=== PATIENT | female | born 1955 | race Caucasian/White ===

== ENCOUNTER 2024-01-05 16:42 | Emergency (ER) | payer MEDICARE, OTHER ==
[2024-01-05] MEDS ORDERED: Augmentin 875-125 Tablet ONE (17:01)
[2024-01-05] MEDS: Augmentin 875-125 Tablet PO ONE (17:02)
[2024-01-05 17:05] VITALS: TEMP 97
--- NOTE | 2024-01-05 17:07 | ERPHSYRPT ---
- History of Present Illness Time Seen by Provider: 01/05/24 17:01 Source: patient Exam Limitations: no limitations Physician History: Patient is a 68-year-old female presents to our emergency department for evaluation of a laceration to her left fifth digit. Patient states her 7-month-old puppy was playing with her when he accidentally lacerated her finger with his immature sharp teeth. Patient reports her puppy is fully vaccinated. She reports a dog was playing with her. Pet was not aggressive. Injury occurred yesterday approximately 24 hours ago. No active bleeding. Laceration measures 1 cm. No other injuries reported. No active pain. Patient otherwise feels well. She voices no other complaints or concerns at this time. Tetanus is not up-to-date Portions of this note were created with voice recognition technology. There may be grammatical, spelling, punctuation or sound alike errors Timing/Duration: yesterday Severity: mild Modifying Factors: Improves With: nothing Associated Symptoms: denies symptoms Allergies/Adverse Reactions: Sulfa (Sulfonamide Antibiotics) Allergy (Intermediate, Verified 07/26/12 20:19) Hives Home Medications: Levothyroxine Sodium [Synthroid] 25 mcg PO AC 07/26/12 [History] Meloxicam 7.5 mg [Mobic 7.5 MG] 7.5 mg PO DAILY 07/26/12 [History] Paroxetine HCl 20 mg [Paxil 20 MG] 40 mg PO DAILY 07/26/12 [History] hydroCHLOROthiazide [Hydrochlorothiazide] 12.5 mg PO DAILY 07/26/12 [History] Calcium Carbonate/Vitamin D3 [Calcium 500-Vit D3 400 Tablet] 1 each PO DAILY 07/27/12 [History] Cholecalciferol (Vitamin D3) [Vitamin D] 400 unit PO DAILY 07/27/12 [History] Cranberry Conc/Ascorbic Acid [Cranberry + Vit C Softgel] 2 - 4 each PO DAILY 07/27/12 [History] Cyanocobalamin/Folic Acid [Vitamin B72-Mqmam Acid Tablet] 1 each PO DAILY 07/27/12 [History] Ferrous Sulfate [Iron] 325 mg PO DAILY 07/27/12 [History] Lactobacillus Acidophilus [Acidophilus] 1 each PO DAILY 07/27/12 [History] [place]-3 Fatty Acids/Fish Oil [Fish Oil 1,000 mg Capsule] 1,000 mg PO DAILY 07/27/12 [History] Trandolapril [Mavik] 4 mg PO DAILY 07/27/12 [History] Hx Tetanus, Diphtheria Vaccination/Date Given: No Hx Influenza Vaccination/Date Given: Yes (2011) Hx Pneumococcal Vaccination/Date Given: Yes (2007) - Review of Systems Constitutional: No Symptoms, No Fever, No Chills Eyes: No Symptoms Ears, Nose, & Throat: No Symptoms Respiratory: No Symptoms, No Cough, No Dyspnea Cardiac: No Symptoms, No Chest Pain, No Edema, No Syncope Abdominal/Gastrointestinal: No Symptoms, No Abdominal Pain, No Nausea, No Vomiting, No Diarrhea Genitourinary Symptoms: No Symptoms, No Dysuria Musculoskeletal: No Symptoms, No Back Pain, No Neck Pain Skin: No Symptoms, No Rash Neurological: No Symptoms, No Dizziness, No Focal Weakness, No Sensory Changes Psychological: No Symptoms Endocrine: No Symptoms Hematologic/Lymphatic: No Symptoms Immunological/Allergic: No Symptoms All Other Systems: Reviewed and Negative - Past Medical History Pertinent Past Medical History: Yes Neurological History: No Pertinent History ENT History: No Pertinent History Cardiac History: Hypertension Respiratory History: COPD, Other Endocrine Medical History: Hypothyroidism Musculoskeletal History: Osteoarthritis GI Medical History: Diverticulosis History: No Pertinent History Psycho-Social History: Anxiety Female Reproductive Disorders: No Pertinent History Other Medical History: NOTED ABOVE COVID IN JANUARY. FX RIGHT FEMUR WITH CHRISTINE PLACEMENT 2014. HX FX RIGHT TIBIAL PLATEAU WITH TKR 2015. OTHER PMHX: ANXIETY, DEPRESSION, VITAMIN D DEFICIENCY, RLS - Past Surgical History Past Surgical History: Yes Neuro Surgical History: No Pertinent History Cardiac: No Pertinent History Respiratory: No Pertinent History Gastrointestinal: No Pertinent History Genitourinary: No Pertinent History Musculoskeletal: Other Female Surgical History: No Pertinent History Other Surgical History: lumpectomy left breast in 1980. in 1984. cervical disk infusion in 2004 - Social History Smoking Status: Never smoker Exposure to second hand smoke: Yes (father smoked) Drug Use: none Patient Lives Alone: No - Nursing Vital Signs Nursing Vital Signs: Initial Vital Signs Temperature 97 F 01/05/24 16:51 Pulse Rate 51 L 01/05/24 16:51 Respiratory Rate 18 01/05/24 16:51 Blood Pressure 150/99 01/05/24 16:51 O2 Sat by Pulse Oximetry 96 01/05/24 16:51 Pain Scale Pain Intensity 4 - Physical Exam General Appearance: no apparent distress, alert Eye Exam: PERRL/EOMI, eyes nml inspection Ears, Nose, Throat Exam: normal ENT inspection, moist mucous membranes Neck Exam: normal inspection, full range of motion Respiratory Exam: normal breath sounds, airway intact, No respiratory distress Cardiovascular Exam: regular rate/rhythm, normal peripheral pulses Gastrointestinal/Abdomen Exam: No tenderness, No mass Back Exam: No CVA tenderness, No vertebral tenderness Extremity Exam: normal inspection, normal range of motion, pelvis stable, other (1 cm superficial laceration left fifth digit. The involved digit neurovascular tact distally compartments are soft cap refill less than 2 seconds. No active bleeding. Radial pulse palpable) Neurologic Exam: alert, oriented x 3, cooperative, normal mood/affect, sensation nml, No motor deficits Skin Exam: normal color, warm, dry, No rash Lymphatic Exam: No adenopathy SpO2 Interpretation: normal SpO2: 96 O2 Delivery: Room Air - Course Nursing assessment & vital signs reviewed: Yes Ordered Tests: Active Orders 24 hr Category Date Time Status Wound Care STAT Care 01/05/24 17:10 Active Medication Summary Generic Name Dose Route Start Last Admin Trade Name Freq PRN Reason Stop Dose Admin Diphtheria/Tetanus/Acell Pertussis 0.5 ml 01/05/24 17:10 Tdap --Diph,Pertuss(Acell),Tet Vac/Pf 0.5 Ml Vial IM 01/05/24 17:11 .ONCE ONE Discontinued Medications Generic Name Dose Route Start Last Admin Trade Name Freq PRN Reason Stop Dose Admin Amoxicillin/Clavulanate Potassium 875 mg 01/05/24 16:57 01/05/24 17:02 Amox Tr/Potassium Clavulanate 875 Mg Tablet PO 01/05/24 16:58 875 mg STAT ONE Administration Amoxicillin/Clavulanate Potassium Confirm 01/05/24 17:01 Amox Tr/Potassium Clavulanate 875 Mg Tablet Administered 01/05/24 17:02 Dose 875 mg .ROUTE .STK-MED ONE - Progress Progress: improved Progress Note: 68-year-old female presents with a laceration to her left fifth digit sustained while playing with her 7-month-old puppy. The injury was accidental. The dog is not aggressive. Patient reports her puppy is up-to-date with vaccinations. However patient is not. Tetanus updated in our ED. The laceration is 24 hours old. It will be repaired using Steri-Strips and Dermabond. Sterile dressing applied. Patient neurovascular tact distally post dressing application. No indication for further workup will discharge home. Patient agrees to follow-up with her primary care doctor within 48 hours for reevaluation. Patient received an oral dose of Augmentin in our ED. A prescription for the same forwarded to patient's pharmacy. Portions of this note were created with voice recognition technology. There may be grammatical, spelling, punctuation or sound alike errors Complexity problem addressed is moderate acute complicated no critical care time. Complex of data reviewed analyzes none no specialized testing ordered. Diagnosis made based on history and physical exam. Risk of complication and or risk of morbidity/mortality patient management is moderate. A prescription for Augmentin forwarded to patient's pharmacy. Vital stable. Time spent to discharge patient approximately 10 minutes. Plan of care established for shared decision making. No social determinants of health present to impede follow-up. Portions of this note were created with voice recognition technology. There may be grammatical, spelling, punctuation or sound alike errors 01/05/24 17:20 Counseled pt/family regarding: diagnosis, need for follow-up - Departure Departure Disposition: Home Clinical Impression: Finger laceration Condition: Stable Critical Care Time: No Referrals: ROBERT BELLE DO [Primary Care Provider] - Follow up/PCP as directed Additional Instructions: Discharge/Care Plan MARIE WALLACE was seen on 01/05/24 in the Emergency Room. The patient was counseled regarding Diagnosis,Lab results, Imaging studies, need for follow up and when to return to the Emergency Room. Prescriptions given: Discharge Note I have spoken with the patient and/or caregivers. I have explained the patient's condition, diagnosis and treatment plan based on the information available to me at this time. I have answered the patient's and/or caregiver's questions and addressed any concerns. The patient and/or caregivers have as good understanding of the patient's diagnosis, condition and treatment plan as can be expected at this point. The vital signs have been stable. The patient's condition is stable and appropriate for discharge from the emergency department. The patient will pursue further outpatient evaluation with the primary care physician or other designated or consulting physician as outlined in the discharge instructions. The patient and/or caregivers are agreeable to this plan of care and follow-up instructions have been explained in detail. The patient and/or caregivers have received these instruction. The patient/and or caregivers are aware that any significant change in condition or worsening of symptoms should prompt an immediate return to this or the closest emergency department or call 911. Prescriptions: Amox Tr/Potass Clav. 875 mg [Augmentin 875-125 Tablet] 875 mg PO BID 7 Days #14 tablet
[2024-01-05] MEDS ORDERED: Adacel Vial IM ONE (17:11)
[2024-01-05] MEDS: Adacel Vial IM ONE (17:12)
[2024-01-05 17:48] VITALS: BP 145/78; PULSE 68; RESP 16; O2SAT 95
== END 2024-01-05 17:45 | disposition home or self-care (01) ==
LOC: ED 16:42
DX: S61.217A Laceration without foreign body of left little finger without damage to nail, initial encounter (principal); W54.0XXA Bitten by dog, initial encounter; I10 Essential (primary) hypertension; Z79.899 Other long term (current) drug therapy; Z23 Encounter for immunization
CPT/HCPCS: 90471; 90715; 99283; A9270-GY

== ENCOUNTER 2024-09-08 16:54 | Inpatient (IN) | payer MEDICARE, OTHER ==
--- NOTE | 2024-09-08 17:26 | ERPHSYRPT ---
- History of Present Illness Source: patient Exam Limitations: no limitations Patient Subjective Stated Complaint: patient sent from dr office for dehydration and inability to urinate. she states she has loose stool since last thursday and burning with urination Triage Nursing Assessment: patient walks to er bed and uses the restroom independantly. Her breathing is nonlabored. Skin warm, pink and dry. She states she has had loose stool since last thursday, up to 8 per day. She also has burning with urination. She endorses decreased intake and weakness. Abdomen is nontender. Physician History: Patient's had frequent diarrhea. Is been going on for about a week. She says she feels rundown and energy. She has had some nausea but no vomiting. She is not on antibiotics. She has had no changes in her medicines. There is been no out of country travel or drinking of possibly contaminated water. 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 Allergies/Adverse Reactions: Sulfa (Sulfonamide Antibiotics) Allergy (Intermediate, Verified 01/05/24 17:16) [facility] Home Medications: Levothyroxine Sodium [Synthroid] 25 mcg PO AC 07/26/12 [History] hydroCHLOROthiazide [Hydrochlorothiazide] 12.5 mg PO DAILY 07/26/12 [History] Calcium Carbonate/Vitamin D3 [Calcium 500-Vit D3 400 Tablet] 1 each PO DAILY 07/27/12 [History] Cholecalciferol (Vitamin D3) [Vitamin D] 400 unit PO DAILY 07/27/12 [History] Cranberry Conc/Ascorbic Acid [Cranberry + Vit C Softgel] 2 - 4 each PO DAILY 07/27/12 [History] Trandolapril [Mavik] 4 mg PO DAILY 07/27/12 [History] ARIPiprazole [Aripiprazole] 5 mg PO DAILY 09/08/24 [History] Amlodipine Besylate 5 mg PO DAILY 09/08/24 [History] Timolol Maleate/Pf [Timolol Maleate 0.5% Eye Drop] 1 drop DROPS DAILY 09/08/24 [History] Venlafaxine HCl [Venlafaxine HCl ER] 75 mg PO DAILY 09/08/24 [History] Venlafaxine HCl [Venlafaxine HCl ER] 150 mg PO DAILY 09/08/24 [History] clonazePAM [Clonazepam] 0.5 mg PO DAILY 09/08/24 [History] Hx Tetanus, Diphtheria Vaccination/Date Given: No Hx Influenza Vaccination/Date Given: Yes (2011) Hx Pneumococcal Vaccination/Date Given: Yes (2007) Travel Risk - International Travel Have you traveled outside of the country in past 3 weeks: No - Emerging Infectious Disease Are you exhibiting symptoms associated with any current EIDs: Yes Symptoms: Diarrhea - Review of Systems Constitutional: Fatigue, Lethargy, Malaise Eyes: No Symptoms Respiratory: No Symptoms Cardiac: No Symptoms Abdominal/Gastrointestinal: Diarrhea Genitourinary Symptoms: No Symptoms Musculoskeletal: No Symptoms Skin: Skin Lesions Neurological: No Symptoms All Other Systems: Reviewed and Negative - Past Medical History Pertinent Past Medical History: Yes Neurological History: No Pertinent History ENT History: No Pertinent History Cardiac History: Hypertension Respiratory History: COPD, Other Endocrine Medical History: Hypothyroidism Musculoskeletal History: Osteoarthritis GI Medical History: Diverticulosis History: No Pertinent History Psycho-Social History: Anxiety Female Reproductive Disorders: No Pertinent History Other Medical History: NOTED ABOVE COVID IN JANUARY. FX RIGHT FEMUR WITH CHRISTINE PLACEMENT 2014. HX FX RIGHT TIBIAL PLATEAU WITH TKR 2015. OTHER PMHX: ANXIETY, DEPRESSION, VITAMIN D DEFICIENCY, RLS - Past Surgical History Past Surgical History: Yes Neuro Surgical History: No Pertinent History Cardiac: No Pertinent History Respiratory: No Pertinent History Gastrointestinal: No Pertinent History Genitourinary: No Pertinent History Musculoskeletal: Other Female Surgical History: No Pertinent History Other Surgical History: lumpectomy left breast in 1980. in 1984. cervical disk infusion in 2004 - Social History Smoking Status: Never smoker Exposure to second hand smoke: Yes (father smoked) Drug Use: none - Social Determinants of Health Will the patient participate in the screening: Yes Do you worry about a steady place to live?: No Do you have any problems with any of the following?: No known problems In the past 12 months,have you had to go without utilities?: No Transportation Issues: No Has anyone in your support network made you feel unsafe?: No Have you or anyone in your house had to go w/o enough food: No - Nursing Vital Signs Nursing Vital Signs: Initial Vital Signs Pulse Rate 67 09/08/24 17:10 Respiratory Rate 23 09/08/24 17:10 Pain Scale Pain Intensity 0 - Physical Exam General Appearance: no apparent distress Eye Exam: PERRL/EOMI Ears, Nose, Throat Exam: normal ENT inspection Neck Exam: normal inspection Respiratory Exam: normal breath sounds, lungs clear, No chest tenderness Cardiovascular Exam: regular rate/rhythm, normal heart sounds Gastrointestinal/Abdomen Exam: soft, normal bowel sounds, No tenderness, No distention Pelvic Exam: not done Back Exam: normal inspection Neurologic Exam: alert, oriented x 3, cooperative Skin Exam: normal color, warm - Course EKG Interpreted by Me: RATE, NORMAL AXIS, NORMAL INTERVALS, NORMAL QRS, NORMAL ST-T Ordered Tests: Active Orders 24 hr Category Date Time Status Bedrest with BRP/BSC TOLERATED Activity 09/08/24 20:24 Active Code Status Order ROUTINE Care 09/08/24 20:24 Active EKG-ER Only STAT Care 09/08/24 18:14 Active Intake and Output q4h Care 09/08/24 20:[address] in Observation ROUTINE Care 09/08/24 20:23 Active Telemetry PROTOCOL Care 09/08/24 20:24 Active Telemetry q4h Care 09/08/24 19:54 Active Telemetry q6h Care 09/08/24 20:24 Active CBC W DIFF Stat Lab 09/08/24 17:25 Completed CMP Stat Lab 09/08/24 17:25 Completed CULTURE,URINE Stat Lab 09/08/24 18:58 Received MAGNESIUM Stat Lab 09/08/24 17:25 Completed UA W/RFX UR CULTURE Stat Lab 09/08/24 18:58 Completed EKG PRN RT 09/08/24 20:23 Active Medication Summary Generic Name Dose Route Start Last Admin Trade Name Freq PRN Reason Stop Dose Admin Potassium Chloride 20 meq in 100 mls @ 50 mls/hr 09/08/24 19:54 09/08/24 20:00 Potassium Chloride 20 Meq In Water 100ml IV 09/08/24 21:53 50 mls/hr STAT ONE Administration Sodium Chloride 1,000 mls @ 250 mls/hr 09/08/24 19:55 09/08/24 19:59 Sodium Chloride 0.9% 1000 Ml IV 09/08/24 23:54 250 mls/hr .Q4H STA Administration Discontinued Medications Generic Name Dose Route Start Last Admin Trade Name Freq PRN Reason Stop Dose Admin Sodium Chloride 1,000 mls @ 999 mls/hr 09/08/24 17:15 09/08/24 18:37 Sodium Chloride 0.9% 1000 Ml IV 09/08/24 18:15 Infused .Q1H1M STA Infusion Sodium Chloride Confirm 09/08/24 17:25 Sodium Chloride 0.9% 1000 Ml Administered 09/08/24 17:26 Dose 1,000 mls @ ud .ROUTE .STK-MED ONE Potassium Chloride Confirm 09/08/24 19:56 Potassium Chloride 20 Meq In Water 100ml Administered 09/08/24 19:57 Dose 100 mls @ ud IV .STK-MED ONE Sodium Chloride Confirm 09/08/24 19:59 Sodium Chloride 0.9% 1000 Ml Administered 09/08/24 20:00 Dose 1,000 mls @ ud .ROUTE .STK-MED ONE Potassium Chloride 40 meq 09/08/24 18:14 09/08/24 18:17 Potassium Chloride Tab 10 Meq Tab PO 09/08/24 18:15 40 meq STAT ONE Administration Potassium Chloride Confirm 09/08/24 18:16 Potassium Chloride Tab 10 Meq Tab Administered 09/08/24 18:17 Dose 40 meq .ROUTE .STK-MED ONE Lab/Rad Data: Laboratory Result Diagrams 09/08/24 17:25 09/08/24 17:25 Laboratory Results 09/08/24 09/08/24 09/08/24 Range/Units 18:58 17:25 17:25 WBC 8.3 (3.98-10.04) x10^3/uL RBC 4.56 (3.93-5.22) x10^6/uL Hgb 12.6 (11.2-15.7) g/dL Hct 39.0 (34.1-44.9) % MCV 85.5 (79.4-94.8) fL MCH 27.6 (25.6-32.2) pg MCHC 32.3 (32.2-35.5) g/dL RDW 13.3 (11.7-14.4) % Plt Count 322 (182-369) x10^3/uL MPV 9.0 L (9.4-12.3) fL Gran % 66.7 (34.0-71.1) % Immature Gran % (Auto) 0.5 H (0.001-0.429) % Nucleat RBC Rel Count 0.0 (0.00-0.2) % Eos # (Auto) 0.11 (0.04-0.36) x10^3/uL Immature Gran # (Auto) 0.04 H (0.001-0.031) x10^3u/L Absolute Lymphs (auto) 1.53 (1.18-3.74) x10^3/uL Absolute Monos (auto) 1.04 H (0.24-0.86) x10^3/uL Absolute Nucleated RBC 0.00 (0.00-0.012) x10^3u/L Lymphocytes % 18.5 L (19.3-51.7) % Monocytes % 12.6 H (4.7-12.5) % Eosinophils % 1.3 (0.7-5.8) % Basophils % 0.4 (0.1-1.2) % Absolute Granulocytes 5.53 (1.56-6.13) x10^3/uL Basophils # 0.03 (0.01-0.08) x10^3/uL Sodium 130 L (135-145) mmol/L Potassium 2.5 L* (3.5-5.1) mmol/L Chloride 92 L (98-107) mmol/L Carbon Dioxide 24 (22-30) mmol/L Anion Gap 16.7 H (5-15) MEQ/L BUN 33 H (7-17) mg/dL Creatinine 4.13 H (0.52-1.04) mg/dL Estimated GFR 11.2 ML/MIN Glucose 108 H (74-106) mg/dL Calcium 8.8 (8.4-10.2) mg/dL Magnesium 2.1 (1.6-2.3) mg/dL Total Bilirubin 0.70 (0.2-1.3) mg/dL AST 36 (14-36) U/L ALT 27 (0-35) U/L Alkaline Phosphatase 125 (38-126) U/L Serum Total Protein 8.6 H (6.3-8.2) g/dL Albumin 4.3 (3.5-5.0) g/dL Urine Color Dark Yellow A (Yellow) Urine Appearance Turbid A (Clear) Urine pH 5.5 (4.6-8.0) Ur Specific Todd 1.010 (1.005-1.030) Urine Protein 100 A (Negative) Urine Glucose (UA) Negative (Negative) mg/dL Urine Ketones Negative (Negative) Urine Blood Large A (Negative) Urine Nitrite Negative (Negative) Urine Bilirubin Large A (Negative) Urine Urobilinogen 1.0 A (0.2) mg/dL Ur Leukocyte Esterase Large A (Negative) U Hyaline Cast (Auto) >50 A (0-2) /LPF Urine Microscopic RBC >100 A (0-5) /HPF Urine Microscopic WBC >100 A (0-5) /HPF Ur Epithelial Cells Few (None Seen) /HPF Urine Bacteria Many A (None Seen) /HPF Urine Culture Reflexed YES (NO) - Progress Progress: improved Progress Note: Patient got a liter of fluids and was feeling better. Her labs started coming back. She had had a potassium of 2.5 and her BUN was 33 and her creatinine was 4.3. She had labs done 10 days ago in the creatinine was only 1.03. I think that this is all prerenal kidney injury.I gave her some oral potassium and hung up potassium rider on her. I went ahead and contacted the hospitalist. She agreed to accept the patient and hydrate her and monitor her electrolytes. 09/08/24 20:21 - Departure Departure Disposition: Observation Clinical Impression: Dehydration, Acute kidney injury, Hypokalemia Condition: Stable Critical Care Time: No Referrals: ROBERT BELLE DO [Primary Care Provider, [facility]] - Follow up/PCP as directed
[2024-09-08 17:37] LABS: BASOPHIL % 0.4 % (0.1-1.2); Basophil (Absolute #) 0.03 x10^3/uL (0.01-0.08); Eosinophil (Absolute #) 0.11 x10^3/uL (0.04-0.36); Hematocrit 39.0 % (34.1-44.9); Hemoglobin 12.6 g/dL (11.2-15.7); IMMATURE GRAN # 0.04 x10^3u/L (0.001-0.031); IMMATURE GRAN % 0.5 % (0.001-0.429); Lymphocyte (Absolute #) 1.53 x10^3/uL (1.18-3.74); Mean Corpuscular Hemoglobin 27.6 pg (25.6-32.2); Mean Corpuscular Hgb Concent. 32.3 g/dL (32.2-35.5); Monocyte (Absolute #) 1.04 x10^3/uL (0.24-0.86); NUCLEATED RBC # 0.00 x10^3u/L (0.00-0.012); NUCLEATED RBC % 0.0 % (0.00-0.2); Platelet Count 322 x10^3/uL (182-369); Red Blood Count 4.56 x10^6/uL (3.93-5.22); White Blood Count 8.3 x10^3/uL (3.98-10.04)
[2024-09-08 17:55] LABS: Calcium 8.8 mg/dL (8.4-10.2); Carbon Dioxide 24.0 mmol/L (22-30); Creatinine 1 4.13 mg/dL (0.52-1.04); EST GLOMERULAR FILTRATION RATE 11.2 ML/MIN; Glucose 108.0 mg/dL (74-106); SGOT/AST 36.0 U/L (14-36); SGPT/ALT 27.0 U/L (0-35); Total Protein 8.6 g/dL (6.3-8.2)
[2024-09-08 18:11] LABS: Potassium 2.5 mmol/L (3.5-5.1)
[2024-09-08] MEDS ORDERED: Klor Con ONE (18:16)
[2024-09-08] MEDS: Klor Con PO ONE (18:17)
[2024-09-08 19:32] LABS: Glucose, Urine Negative (Negative); Protein,Urine Dip 100 (Negative); RBC >100 /HPF (0-5); WBC >100 /HPF (0-5)
[2024-09-08] MEDS ORDERED: POTASSIUM CHLORIDE 20 mEq IN WATER 100ML 100 ML IV ONE (19:56)
[2024-09-08] MEDS: POTASSIUM CHLORIDE 20 mEq IN WATER 100ML 20 MEQ/100 ML BAG IV ONE (20:00)
--- NOTE | 2024-09-08 20:49 | PCM.HP ---
History of Present Illness - Chief Complaint Chief Complaint: Hypokalemia, acute kidney injury, dehydration Date: 09/08/24 History of Present Illness: is a 69 year old female with PMh significant for HTN, Hypothyroidism, Anxiety who came upon her PCP request for ANGELIKA/ diarrhea evaluation, pt told me for one week she is suffering from loose stools mostly diarrhea with on/ of fever, no blood stools, she did have Sx of UTI as well, not being started on AB, today she went to see her PCP who advised her to come to ER for further evaluation.In ER Bp was running towards softer side, blood w/u was remarkable high Cr 4.2, K 2.9, urine +ve for LE,2wbc 100 and blood +ve, started o nAB and admitted for further care - Review of Systems All Other Systems: Reviewed and Negative (14 systems reviewed and marked -ve except mentioned in [facility] [facility]) Medications & Allergies Home Medications: Home Medication List hydroCHLOROthiazide [Hydrochlorothiazide] 12.5 mg PO DAILY 07/26/12 [History C onfirmed 09/08/24] Calcium Carbonate/Vitamin D3 [Calcium 500-Vit D3 400 Tablet] 1 each PO DAILY 07/27/12 [History Confirmed 09/08/24] Cholecalciferol (Vitamin D3) [Vitamin D] 400 unit PO DAILY 07/27/12 [History Confirmed 09/08/24] Cranberry Conc/Ascorbic Acid [Cranberry + Vit C Softgel] 2 - 4 each PO DAILY 07/27/12 [History Confirmed 09/08/24] Trandolapril [Mavik] 4 mg PO DAILY 07/27/12 [History Confirmed 09/08/24] ARIPiprazole [Aripiprazole] 5 mg PO DAILY 09/08/24 [History Confirmed 09/08/24] Amlodipine Besylate 5 mg PO DAILY 09/08/24 [History Confirmed 09/08/24] Cyclobenzaprine HCl 5 mg PO QHS 09/08/24 [History Confirmed 09/08/24] Gabapentin 600 mg PO QHS 09/08/24 [History Confirmed 09/08/24] Levothyroxine Sodium 50 Mcg [Synthroid 50 Mcg] 50 mcg PO QAM 09/08/24 [History Confirmed 09/08/24] Rosuvastatin Calcium [Crestor] 5 mg PO DAILY 09/08/24 [History Confirmed 09/08/24] Timolol Maleate/Pf [Timolol Maleate 0.5% Eye Drop] 1 drop DROPS DAILY 09/08/24 [History Confirmed 09/08/24] Trazodone HCl 150 mg PO QHS 09/08/24 [History Confirmed 09/08/24] Venlafaxine HCl [Venlafaxine HCl ER] 150 mg PO DAILY 09/08/24 [History Confirmed 09/08/24] clonazePAM [Clonazepam] 0.5 mg PO DAILY 09/08/24 [History Confirmed 09/08/24] hydrOXYzine HCL [Hydroxyzine HCl] 10 mg PO QHS 09/08/24 [History Confirmed 09/08/24] Allergies/Adverse Reactions: Allergies Allergy/AdvReac Type Severity Reaction Status Date / Time Sulfa (Sulfonamide Allergy Intermediate Hives Verified 09/08/24 20:47 Antibiotics) - Past Medical History Past Medical History: Yes Neurological History: No Pertinent History ENT History: No Pertinent History Cardiac History: Hypertension Respiratory History: COPD, Other Endocrine Medical History: Hypothyroidism Musculoskelatal History: Osteoarthritis GI Medical History: Diverticulosis History: No Pertinent History Pyscho-Social History: Anxiety Reproductive Disorders: No Pertinent History Comment: NOTED ABOVE COVID IN JANUARY. FX RIGHT FEMUR WITH CHRISTINE PLACEMENT 2014. HX FX RIGHT TIBIAL PLATEAU WITH TKR 2015. OTHER PMHX: ANXIETY, DEPRESSION, VITAMIN D DEFICIENCY, RLS - Past Surgical History Past Surgical History: Yes Neuro Surgical History: No Pertinent History Cardiac History: No Pertinent History Respiratory Surgery: No Pertinent History GI Surgical History: No Pertinent History Genitourinary Surgical Hx: No Pertinent History Musculskeletal Surgical Hx: Other Female Surgical History: No Pertinent History Other Surgical History: lumpectomy left breast in 1980. in 1984. cervical disk infusion in 2004 Significant Family History: no pertinent family hx (no family history petrtaining to this admission reported) - Social History Smoking Status: Never smoker Exposure to second hand smoke: Yes (father smoked) Alcohol: None Drug Use: none - Social Determinants of Health Will the patient participate in the screening: Yes Do you worry about a steady place to live?: No Do you have any problems with any of the following?: No known problems In the past 12 months,have you had to go without utilities?: No Have you or anyone in your house had to go without enough: No Transportation Issues: No Has anyone in your support network made you feel unsafe?: No - Physical Exam Vital Signs: Vital Signs - 24 hr Temp Pulse Resp BP BP Pulse Ox 09/08/24 19:59 70 19 99/71 98 09/08/24 19:09 60 19 107/66 99 09/08/24 19:08 63 20 78 L 09/08/24 19:07 98 09/08/24 18:30 136/74 09/08/24 18:01 57 L 20 125/54 97 09/08/24 17:30 59 L 20 113/66 98 09/08/24 17:20 97.1 F 57 L 16 110/63 99 09/08/24 17:11 60 24 110/63 97 09/08/24 17:10 67 23 Additional Findings: 09/08/24 20:48 HEENT Middle aged, average built in no distress NECK Supple,no thyromegaly, CVS S1+S2 + 0, no murmers RESP Bilateral equal air entry without Crepts/Wheezes heard GIT Soft non tender,non distended Skin, No rah, no Bruises LEGS No Edema PSYCH Normal,mood, judgement and insight NEURO AOX3, no focal deficit Results - Labs Lab/Micro Results: Lab Results-Last 24 Hours 09/08/24 09/08/24 09/08/24 Range/Units 17:25 17:25 18:58 WBC 8.3 (3.98-10.04) x10^3/uL RBC 4.56 (3.93-5.22) x10^6/uL Hgb 12.6 (11.2-15.7) g/dL Hct 39.0 (34.1-44.9) % MCV 85.5 (79.4-94.8) fL MCH 27.6 (25.6-32.2) pg MCHC 32.3 (32.2-35.5) g/dL RDW 13.3 (11.7-14.4) % Plt Count 322 (182-369) x10^3/uL MPV 9.0 L (9.4-12.3) fL Gran % 66.7 (34.0-71.1) % Immature Gran % (Auto) 0.5 H (0.001-0.429) % Nucleat RBC Rel Count 0.0 (0.00-0.2) % Eos # (Auto) 0.11 (0.04-0.36) x10^3/uL Immature Gran # (Auto) 0.04 H (0.001-0.031) x10^3u/L Absolute Lymphs (auto) 1.53 (1.18-3.74) x10^3/uL Absolute Monos (auto) 1.04 H (0.24-0.86) x10^3/uL Absolute Nucleated RBC 0.00 (0.00-0.012) x10^3u/L Lymphocytes % 18.5 L (19.3-51.7) % Monocytes % 12.6 H (4.7-12.5) % Eosinophils % 1.3 (0.7-5.8) % Basophils % 0.4 (0.1-1.2) % Absolute Granulocytes 5.53 (1.56-6.13) x10^3/uL Basophils # 0.03 (0.01-0.08) x10^3/uL Sodium 130 L (135-145) mmol/L Potassium 2.5 L* (3.5-5.1) mmol/L Chloride 92 L (98-107) mmol/L Carbon Dioxide 24 (22-30) mmol/L Anion Gap 16.7 H (5-15) MEQ/L BUN 33 H (7-17) mg/dL Creatinine 4.13 H (0.52-1.04) mg/dL Estimated GFR 11.2 ML/MIN Glucose 108 H (74-106) mg/dL Calcium 8.8 (8.4-10.2) mg/dL Magnesium 2.1 (1.6-2.3) mg/dL Total Bilirubin 0.70 (0.2-1.3) mg/dL AST 36 (14-36) U/L ALT 27 (0-35) U/L Alkaline Phosphatase 125 (38-126) U/L Serum Total Protein 8.6 H (6.3-8.2) g/dL Albumin 4.3 (3.5-5.0) g/dL Urine Color Dark Yellow A (Yellow) Urine Appearance Turbid A (Clear) Urine pH 5.5 (4.6-8.0) Ur Specific [place] 1.010 (1.005-1.030) Urine Protein 100 A (Negative) Urine Glucose (UA) Negative (Negative) mg/dL Urine Ketones Negative (Negative) Urine Blood Large A (Negative) Urine Nitrite Negative (Negative) Urine Bilirubin Large A (Negative) Urine Urobilinogen 1.0 A (0.2) mg/dL Ur Leukocyte Esterase Large A (Negative) U Hyaline Cast (Auto) >50 A (0-2) /LPF Urine Microscopic RBC >100 A (0-5) /HPF Urine Microscopic WBC >100 A (0-5) /HPF Ur Epithelial Cells Few (None Seen) /HPF Urine Bacteria Many A (None Seen) /HPF Urine Culture Reflexed YES (NO) - Other Procedures and Tests Respiratory Therapy 09/08/24 20:23 EKG PRN Assessment/Plan (1) Acute kidney injury Current Visit: Yes Status: Acute Code(s): N17.9 - ACUTE KIDNEY FAILURE, UNSPECIFIED (2) Hypokalemia Current Visit: Yes Status: Acute Code(s): E87.6 - HYPOKALEMIA (3) Urinary tract infection Current Visit: Yes Status: Acute Code(s): N39.0 - URINARY TRACT INFECTION, SITE NOT SPECIFIED Telemedicine Encounter - Telemedicine Encounter Telemedicine Encounter: The entirety of this encounter was performed via TelemedicineThis visit was performed using real-time audio and video connection between my location and thepatients locationwith the assistance of a surrogateat the patients location. Written or verbal consent was obtained from the patient/guardian to perform this visit usingnchrUnited [facility]icine technology. Any patient questions regarding the telemedicine interaction were answered. Acute kidney injury baseline Cr was 1.4 Current Cr upon admit > 4 Seems Prerenal due to diarrhea/Volume depletion C/w Ns at 125 cc /hr Check Renal USG Keep avoiding nephrotoxins Urinary tract infection Urine +ve for blood/LE + wbc 100 C/w Ceftriaxone keep F/up cultures Hypertension Bp running towards softer side Keep holding all Bp meds for now Anxiety/Bipolar Resumed all home meds Keep holding katerina for now Hypothyroidism resume home levothyroxine DVT PPX SCd/Heparin Code status Full D/c planning, Pending clinical stability ,have reviewed pt labs, V/S and imaging in detail , all question/concerns addressed
[2024-09-08] MEDS: POTASSIUM CHLORIDE 20 mEq IN WATER 100ML 20 MEQ/100 ML BAG IV SCH (23:19)
[2024-09-08] MEDS ORDERED: DESYREL 50 MG ONE (23:58)
[2024-09-09] MEDS: TRAZODONE HCL 150 MG PO SCH (00:06)
--- NOTE | 2024-09-09 00:06 | XRAY ---
CLINICAL HISTORY: Diarrhea/ANGELIKA COMPARISON: TECHNIQUE: Contiguous axial images were obtained from the level of the diaphragm to the pubic symphysis without intravenous or oral contrast. Coronal and sagittal reconstructions were likewise performed and indicated to increase the sensitivity for detecting clinically relevant pathology. CT scan was performed according to ALARA (as low as reasonable achievable). FINDINGS: The visualized lung bases are clear. Evaluation of the abdominal and pelvic visceral organs is limited without intravenous contrast. The unenhanced spleen, pancreas, and adrenal glands are grossly unremarkable. Liver is enlarged in size, measures ~ 17cm in mid clavicular line and shows normal attenuation. The gallbladder was surgically removed. The kidneys are normal in size and attenuation without obvious calcification. There is no hydronephrosis or perinephric stranding. The ureters are normal in caliber. No adenopathy or fluid collections are seen. Mild pericolic fat stranding noted in right lower quadrant with no obvious bowel wall thickening - could represent early colitis- new finding No evidence of focal or diffuse bowel wall thickening or evidence of bowel obstruction is seen. The appendix is visualized in the right lower quadrant and appears within normal limits. The aorta is normal in caliber. The urinary bladder is undistended. Pelvic viscera are grossly unremarkable. No aggressive appearing osseous lesions are identified. Degenerative changes are noted in the visualized spine in the form of marginal osteophytes, endplate irregularities and sclerosis, reduction in the disc height, small posterior disc bulges, vacuum phenomenon and facet arthropathy changes. Grade I anterolisthesis of L4 over L5 vertebra is noted with unilateral pars interarticularis defect of L4 vertebra. Right total hip arthroplasty changes. IMPRESSION: 1. Mild pericolic fat stranding in right lower quadrant with no obvious bowel wall thickening - could represent early colitis- new finding 2. Interval unchanged mild hepatomegaly 3. 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 No other new findings Electronically Signed by: Joe Ziegler MD. (09/09/2024 00:03:39 EDT)
[2024-09-09 04:54] LABS: BASOPHIL % 0.4 % (0.1-1.2); Basophil (Absolute #) 0.03 x10^3/uL (0.01-0.08); Eosinophil (Absolute #) 0.19 x10^3/uL (0.04-0.36); Hematocrit 35.6 % (34.1-44.9); Hemoglobin 11.6 g/dL (11.2-15.7); IMMATURE GRAN # 0.03 x10^3u/L (0.001-0.031); IMMATURE GRAN % 0.4 % (0.001-0.429); Lymphocyte (Absolute #) 1.60 x10^3/uL (1.18-3.74); Mean Corpuscular Hemoglobin 27.8 pg (25.6-32.2); Mean Corpuscular Hgb Concent. 32.6 g/dL (32.2-35.5); Monocyte (Absolute #) 0.87 x10^3/uL (0.24-0.86); NUCLEATED RBC # 0.00 x10^3u/L (0.00-0.012); NUCLEATED RBC % 0.0 % (0.00-0.2); Platelet Count 301 x10^3/uL (182-369); Red Blood Count 4.17 x10^6/uL (3.93-5.22); White Blood Count 7.4 x10^3/uL (3.98-10.04)
[2024-09-09 05:08] LABS: Calcium 8.5 mg/dL (8.4-10.2); Carbon Dioxide 25.0 mmol/L (22-30); Creatinine 1 2.69 mg/dL (0.52-1.04); EST GLOMERULAR FILTRATION RATE 18.7 ML/MIN; Glucose 114.0 mg/dL (74-106); Potassium 3.2 mmol/L (3.5-5.1)
[2024-09-09] MEDS: Klor Con PO ONE (05:34)
[2024-09-09] MEDS: Abilify 10 MG PO SCH (11:16)
[2024-09-09] MEDS: SYNTHROID 50 MCG PO SCH (11:17)
[2024-09-09] MEDS: Zocor 10MG PO SCH (11:17)
[2024-09-09] MEDS: ROCEPHIN 1 GM / 100 ML NaCl 1 GM/100 ML IVPB IV SCH (11:17)
[2024-09-09] MEDS: Acidophilus TABLET PO SCH (11:17)
[2024-09-09] MEDS: Effexor XR 75 MG PO SCH (11:17)
[2024-09-09] MEDS: TIMOPTIC 0.5% 5 ML OPHTHALMIC OP SCH (11:18)
--- NOTE | 2024-09-09 11:33 | PCM.NOTE ---
Date and Time: 09/09/24 1128 Subjective Assessment: Ms. Cisneros is a 69-year-old female with a medical history of hypertension, hypothyroidism, and anxiety who was referred to the emergency department by her primary care provider for evaluation of acute kidney injury and diarrhea. She reported experiencing a week of persistent loose stools, intermittent fever, and symptoms of a urinary tract infection, though she had not yet started antibiotics. In the ED, her blood pressure was noted to be low, and labs revealed a creatinine level of 4.2, potassium of 2.9, and a positive urinalysis with leukocyte esterase, numerous white blood cells, and blood. She was started on antibiotics and admitted for further management. On 09/09, she remained in bed and was updated on her lab and imaging results. Her antibiotics were changed from Ceftriaxone to Meropenem to cover for colitis and possible diverticulitis, as CT imaging showed right lower quadrant paracolic fat stranding. Although she denied abdominal pain, she continued to have frequent bowel movements overnight and reported that her stools appeared darker and possibly bloody. She was started on Protonix BID, probiotics, and medication for bladder spasms. Her most recent potassium was 3.2 and was repleted; a recheck was planned for noon. Kidney function has shown improvement but remains above baseline, and IV fluids are being continued. She reported no further concerns at this time and noted that her last colonoscopy was three years ago with Dr. Garcia at [facility]. Urine culture is pending. - Review of Systems Constitutional: No Fever, No Chills Eyes: No Symptoms Ears, Nose, & Throat: No Symptoms Respiratory: No Cough, No Short Of Breath Cardiac: No Chest Pain, No Edema, No Syncope Abdominal/Gastrointestinal: Diarrhea, Melena, No Abdominal Pain, No Nausea, No Vomiting Genitourinary Symptoms: Dysuria, Other (bladder spasms) Musculoskeletal: No Back Pain, No Neck Pain Skin: No Rash Neurological: No Dizziness, No Focal Weakness, No Sensory Changes Psychological: No Symptoms Endocrine: No Symptoms Hematologic/Lymphatic: No Symptoms Immunological/Allergic: No Symptoms Objective Exam General Appearance: no apparent distress, alert, obese Neurologic Exam: alert, oriented x 3, cooperative, normal mood/affect, nml cerebellar function, sensation nml, No motor deficits Skin Exam: normal color, warm, dry Eye Exam: PERRL, EOMI, eyes nml inspection Ears, Nose, Throat Exam: normal ENT inspection, pharynx normal, moist mucous membranes Neck Exam: normal inspection, non-tender, supple, full range of motion Respiratory Exam: normal breath sounds, lungs clear, No respiratory distress Cardiovascular Exam: regular rate/rhythm, normal heart sounds Gastrointestinal/Abdomen Exam: soft, No tenderness, No mass Extremity Exam: normal inspection, normal range of motion Back Exam: normal inspection, normal range of motion, No CVA tenderness, No vertebral tenderness Pelvic Exam: deferred Rectal Exam: deferred Objective Data Vital Signs: Vital Signs - 24 hr Temp Pulse Resp BP BP Pulse Ox 09/09/24 07:57 97.1 F 66 17 106/58 93 L 09/09/24 04:00 96.9 F 62 18 102/52 98 09/08/24 23:31 96.9 F 65 20 103/51 96 09/08/24 21:00 96.7 F 62 18 114/57 96 09/08/24 19:59 70 19 99/71 98 09/08/24 19:09 60 19 107/66 99 09/08/24 19:08 63 20 78 L 09/08/24 19:07 98 09/08/24 18:30 136/74 09/08/24 18:01 57 L 20 125/54 97 09/08/24 17:30 59 L 20 113/66 98 09/08/24 17:20 97.1 F 57 L 16 110/63 99 09/08/24 17:11 60 24 110/63 97 09/08/24 17:10 67 23 Pain Assessment - Last Documented Pain Intensity 0 Intake and Output: Intake & Output 09/06/24 09/07/24 09/08/24 09/09/24 11:59 11:59 11:59 11:59 Intake Total 2306 Output Total 400 Balance 1906 Weight 96.8 kg Lab Results: Lab Results-Last 24 Hours 09/08/24 09/08/24 09/08/24 Range/Units 17:25 17:25 18:58 WBC 8.3 (3.98-10.04) x10^3/uL RBC 4.56 (3.93-5.22) x10^6/uL Hgb 12.6 (11.2-15.7) g/dL Hct 39.0 (34.1-44.9) % MCV 85.5 (79.4-94.8) fL MCH 27.6 (25.6-32.2) pg MCHC 32.3 (32.2-35.5) g/dL RDW 13.3 (11.7-14.4) % Plt Count 322 (182-369) x10^3/uL MPV 9.0 L (9.4-12.3) fL Gran % 66.7 (34.0-71.1) % Immature Gran % (Auto) 0.5 H (0.001-0.429) % Nucleat RBC Rel Count 0.0 (0.00-0.2) % Eos # (Auto) 0.11 (0.04-0.36) x10^3/uL Immature Gran # (Auto) 0.04 H (0.001-0.031) x10^3u/L Absolute Lymphs (auto) 1.53 (1.18-3.74) x10^3/uL Absolute Monos (auto) 1.04 H (0.24-0.86) x10^3/uL Absolute Nucleated RBC 0.00 (0.00-0.012) x10^3u/L Lymphocytes % 18.5 L (19.3-51.7) % Monocytes % 12.6 H (4.7-12.5) % Eosinophils % 1.3 (0.7-5.8) % Basophils % 0.4 (0.1-1.2) % Absolute Granulocytes 5.53 (1.56-6.13) x10^3/uL Basophils # 0.03 (0.01-0.08) x10^3/uL Sodium 130 L (135-145) mmol/L Potassium 2.5 L* (3.5-5.1) mmol/L Chloride 92 L (98-107) mmol/L Carbon Dioxide 24 (22-30) mmol/L Anion Gap 16.7 H (5-15) MEQ/L BUN 33 H (7-17) mg/dL Creatinine 4.13 H (0.52-1.04) mg/dL Estimated GFR 11.2 ML/MIN Glucose 108 H (74-106) mg/dL Calcium 8.8 (8.4-10.2) mg/dL Magnesium 2.1 (1.6-2.3) mg/dL Total Bilirubin 0.70 (0.2-1.3) mg/dL AST 36 (14-36) U/L ALT 27 (0-35) U/L Alkaline Phosphatase 125 (38-126) U/L Serum Total Protein 8.6 H (6.3-8.2) g/dL Albumin 4.3 (3.5-5.0) g/dL Urine Color Dark Yellow A (Yellow) Urine Appearance Turbid A (Clear) Urine pH 5.5 (4.6-8.0) Ur Specific [place] 1.010 (1.005-1.030) Urine Protein 100 A (Negative) Urine Glucose (UA) Negative (Negative) mg/dL Urine Ketones Negative (Negative) Urine Blood Large A (Negative) Urine Nitrite Negative (Negative) Urine Bilirubin Large A (Negative) Urine Urobilinogen 1.0 A (0.2) mg/dL Ur Leukocyte Esterase Large A (Negative) U Hyaline Cast (Auto) >50 A (0-2) /LPF Urine Microscopic RBC >100 A (0-5) /HPF Urine Microscopic WBC >100 A (0-5) /HPF Ur Epithelial Cells Few (None Seen) /HPF Urine Bacteria Many A (None Seen) /HPF Urine Culture Reflexed YES (NO) 09/08/24 09/08/24 09/09/24 Range/Units 23:26 23:52 04:40 WBC 7.4 (3.98-10.04) x10^3/uL RBC 4.17 (3.93-5.22) x10^6/uL Hgb 11.6 (11.2-15.7) g/dL Hct 35.6 (34.1-44.9) % MCV 85.4 (79.4-94.8) fL MCH 27.8 (25.6-32.2) pg MCHC 32.6 (32.2-35.5) g/dL RDW 13.2 (11.7-14.4) % Plt Count 301 (182-369) x10^3/uL MPV 9.2 L (9.4-12.3) fL Gran % 63.0 (34.0-71.1) % Immature Gran % (Auto) 0.4 (0.001-0.429) % Nucleat RBC Rel Count 0.0 (0.00-0.2) % Eos # (Auto) 0.19 (0.04-0.36) x10^3/uL Immature Gran # (Auto) 0.03 (0.001-0.031) x10^3u/L Absolute Lymphs (auto) 1.60 (1.18-3.74) x10^3/uL Absolute Monos (auto) 0.87 H (0.24-0.86) x10^3/uL Absolute Nucleated RBC 0.00 (0.00-0.012) x10^3u/L Lymphocytes % 21.8 (19.3-51.7) % Monocytes % 11.8 (4.7-12.5) % Eosinophils % 2.6 (0.7-5.8) % Basophils % 0.4 (0.1-1.2) % Absolute Granulocytes 4.63 (1.56-6.13) x10^3/uL Basophils # 0.03 (0.01-0.08) x10^3/uL Sodium (135-145) mmol/L Potassium 3.0 L* (3.5-5.1) mmol/L Chloride (98-107) mmol/L Carbon Dioxide (22-30) mmol/L Anion Gap (5-15) MEQ/L BUN (7-17) mg/dL Creatinine (0.52-1.04) mg/dL Estimated GFR ML/MIN Glucose (74-106) mg/dL Calcium (8.4-10.2) mg/dL Magnesium 2.1 (1.6-2.3) mg/dL Total Bilirubin (0.2-1.3) mg/dL AST (14-36) U/L ALT (0-35) U/L Alkaline Phosphatase (38-126) U/L Serum Total Protein (6.3-8.2) g/dL Albumin (3.5-5.0) g/dL Urine Color (Yellow) Urine Appearance (Clear) Urine pH (4.6-8.0) Ur Specific [place] (1.005-1.030) Urine Protein (Negative) Urine Glucose (UA) (Negative) mg/dL Urine Ketones (Negative) Urine Blood (Negative) Urine Nitrite (Negative) Urine Bilirubin (Negative) Urine Urobilinogen (0.2) mg/dL Ur Leukocyte Esterase (Negative) U Hyaline Cast (Auto) (0-2) /LPF Urine Microscopic RBC (0-5) /HPF Urine Microscopic WBC (0-5) /HPF Ur Epithelial Cells (None Seen) /HPF Urine Bacteria (None Seen) /HPF Urine Culture Reflexed (NO) 09/09/24 Range/Units 04:40 WBC (3.98-10.04) x10^3/uL RBC (3.93-5.22) x10^6/uL Hgb (11.2-15.7) g/dL Hct (34.1-44.9) % MCV (79.4-94.8) fL MCH (25.6-32.2) pg MCHC (32.2-35.5) g/dL RDW (11.7-14.4) % Plt Count (182-369) x10^3/uL MPV (9.4-12.3) fL Gran % (34.0-71.1) % Immature Gran % (Auto) (0.001-0.429) % Nucleat RBC Rel Count (0.00-0.2) % Eos # (Auto) (0.04-0.36) x10^3/uL Immature Gran # (Auto) (0.001-0.031) x10^3u/L Absolute Lymphs (auto) (1.18-3.74) x10^3/uL Absolute Monos (auto) (0.24-0.86) x10^3/uL Absolute Nucleated RBC (0.00-0.012) x10^3u/L Lymphocytes % (19.3-51.7) % Monocytes % (4.7-12.5) % Eosinophils % (0.7-5.8) % Basophils % (0.1-1.2) % Absolute Granulocytes (1.56-6.13) x10^3/uL Basophils # (0.01-0.08) x10^3/uL Sodium 134 L (135-145) mmol/L Potassium 3.2 L (3.5-5.1) mmol/L Chloride 101 (98-107) mmol/L Carbon Dioxide 25 (22-30) mmol/L Anion Gap 11.9 (5-15) MEQ/L BUN 32 H (7-17) mg/dL Creatinine 2.69 H (0.52-1.04) mg/dL Estimated GFR 18.7 ML/MIN Glucose 114 H (74-106) mg/dL Calcium 8.5 (8.4-10.2) mg/dL Magnesium (1.6-2.3) mg/dL Total Bilirubin (0.2-1.3) mg/dL AST (14-36) U/L ALT (0-35) U/L Alkaline Phosphatase (38-126) U/L Serum Total Protein (6.3-8.2) g/dL Albumin (3.5-5.0) g/dL Urine Color (Yellow) Urine Appearance (Clear) Urine pH (4.6-8.0) Ur Specific [place] (1.005-1.030) Urine Protein (Negative) Urine Glucose (UA) (Negative) mg/dL Urine Ketones (Negative) Urine Blood (Negative) Urine Nitrite (Negative) Urine Bilirubin (Negative) Urine Urobilinogen (0.2) mg/dL Ur Leukocyte Esterase (Negative) U Hyaline Cast (Auto) (0-2) /LPF Urine Microscopic RBC (0-5) /HPF Urine Microscopic WBC (0-5) /HPF Ur Epithelial Cells (None Seen) /HPF Urine Bacteria (None Seen) /HPF Urine Culture Reflexed (NO) Radiology Exams: Radiology Procedures Category Date Time Status ABDOMEN AND PELVIS W/0 CONTRAS [CT] Routine Exams 09/08/24 23:02 Completed Medications: Medications Generic Name Dose Route Start Last Admin Trade Name Freq PRN Reason Stop Dose Admin Aripiprazole 5 mg 09/09/24 10:00 09/09/24 11:16 Aripiprazole 10 Mg Tablet PO 10/09/24 09:59 5 mg DAILY ELAINE Administration Clonazepam 0.5 mg 09/09/24 10:00 09/09/24 11:17 Clonazepam 0.5 Mg Tablet PO 10/09/24 09:59 0.5 mg DAILY ELAINE Administration Cyclobenzaprine HCl 5 mg 09/09/24 22:00 Cyclobenzaprine Hcl 10 Mg Tablet PO 10/09/24 21:59 QHS ELAINE Hydroxyzine HCl 12.5 mg 09/09/24 22:00 Hydroxyzine Hcl 25 Mg Tablet PO 10/09/24 21:59 QHS ELAINE Sodium Chloride 1,000 mls @ 100 mls/hr 09/08/24 22:15 09/09/24 03:28 Sodium Chloride 0.9% 1000 Ml IV 10/08/24 22:14 100 mls/hr .Q10H ELAINE Administration Lactobacillus Acidophilus 1 tab 09/09/24 10:00 09/09/24 11:17 Lactobacillus Acidophilus 1 Tab Tablet PO 10/09/24 09:59 1 tab DAILY ELAINE Administration Levothyroxine Sodium 50 mcg 09/09/24 10:00 09/09/24 11:17 Levothyroxine Sodium 50 Mcg Tablet PO 10/09/24 09:59 50 mcg QAM ELAINE Administration Pantoprazole Sodium 40 mg 09/09/24 11:23 Pantoprazole 40 Mg Vial IV 10/09/24 11:22 BID ELAINE Phenazopyridine HCl 100 mg 09/09/24 15:00 Phenazopyridine Hcl 200 Mg Tablet PO 09/11/24 14:59 TID ELAINE Simvastatin 10 mg 09/09/24 10:00 09/09/24 11:17 Simvastatin 10 Mg Tablet PO 10/09/24 09:59 10 mg DAILY ELAINE Administration Timolol Maleate 0 ml 09/09/24 10:00 09/09/24 11:18 Timolol Maleate 0.5% 5 Ml Eye Drops OP 10/09/24 09:59 5 ml DAILY ELAINE Administration Trazodone HCl 150 mg 09/09/24 22:00 Trazodone Hcl 50 Mg Tablet PO 10/09/24 21:59 QHS ELAINE Venlafaxine HCl 150 mg 09/09/24 10:00 09/09/24 11:17 Venlafaxine Hcl 75 Mg Extended Release Capsule PO 10/09/24 09:59 150 mg DAILY ELAINE Administration Discontinued Medications Generic Name Dose Route Start Last Admin Trade Name Freq PRN Reason Stop Dose Admin Sodium Chloride 1,000 mls @ 999 mls/hr 09/08/24 17:15 09/08/24 18:37 Sodium Chloride 0.9% 1000 Ml IV 09/08/24 18:15 Infused .Q1H1M STA Infusion Sodium Chloride Confirm 09/08/24 17:25 Sodium Chloride 0.9% 1000 Ml Administered 09/08/24 17:26 Dose 1,000 mls @ ud .ROUTE .STK-MED ONE Potassium Chloride 20 meq in 100 mls @ 50 mls/hr 09/08/24 19:54 09/08/24 20:30 Potassium Chloride 20 Meq In Water 100ml IV 09/08/24 21:53 0 mls/hr STAT ONE Infusion Sodium Chloride 1,000 mls @ 250 mls/hr 09/08/24 19:55 09/08/24 20:30 Sodium Chloride 0.9% 1000 Ml IV 09/08/24 23:54 0 mls/hr .Q4H STA Infusion Potassium Chloride Confirm 09/08/24 19:56 Potassium Chloride 20 Meq In Water 100ml Administered 09/08/24 19:57 Dose 100 mls @ ud IV .STK-MED ONE Sodium Chloride Confirm 09/08/24 19:59 Sodium Chloride 0.9% 1000 Ml Administered 09/08/24 20:00 Dose 1,000 mls @ ud .ROUTE .STK-MED ONE Ceftriaxone Sodium 1 gm in 100 mls @ 200 mls/hr 09/09/24 10:00 09/09/24 11:17 Rocephin 1 Gm / 100 Ml Nacl IV 10/09/24 09:59 200 mls/hr Q24H10 ELAINE Administration Potassium Chloride 20 meq in 100 mls @ 50 mls/hr 09/08/24 22:30 09/09/24 00:55 Potassium Chloride 20 Meq In Water 100ml IV 09/09/24 02:29 50 mls/hr Q2H ELAINE Administration Metronidazole 500 mg in 100 mls @ 200 mls/hr 09/09/24 12:00 Flagyl 500 Mg Ivpb IV 10/09/24 11:59 Q6HT ELAINE Non-Formulary Medication 150 mg 09/09/24 22:00 09/09/24 00:06 Trazodone Hcl [Trazodone Hcl] PO 10/09/24 21:59 150 mg QHS ELAINE Administration Potassium Chloride 40 meq 09/08/24 18:14 09/08/24 18:17 Potassium Chloride Tab 10 Meq Tab PO 09/08/24 18:15 40 meq STAT ONE Administration Potassium Chloride Confirm 09/08/24 18:16 Potassium Chloride Tab 10 Meq Tab Administered 09/08/24 18:17 Dose 40 meq .ROUTE .STK-MED ONE Potassium Chloride 40 meq 09/09/24 05:16 09/09/24 05:34 Potassium Chloride Tab 10 Meq Tab PO 09/09/24 05:17 40 meq STAT ONE Administration Trazodone HCl Confirm 09/08/24 23:58 Trazodone Hcl 50 Mg Tablet Administered 09/08/24 23:59 Dose 150 mg .ROUTE .STK-MED ONE Assessment/Plan (1) Colitis Current Visit: Yes Status: Acute Assessment & Plan: - Merrem - CBC, CMP reviewed - Tylenol 650 mg PRN for pain - CT abd/pelvis: 1. Mild pericolic fat stranding in right lower quadrant with no obvious bowel wall thickening - could represent early colitis- new finding 2. Interval unchanged mild hepatomegaly 3. 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 No other new findings - C-Diff pending Code(s): K52.9 - NONINFECTIVE GASTROENTERITIS AND COLITIS, UNSPECIFIED (2) Bladder spasms Current Visit: Yes Status: Acute Assessment & Plan: - Hyoscyamine TID (3) Acute kidney injury Current Visit: Yes Status: Acute Assessment & Plan: - Creat 2.69- BL 1.03 - IVF Code(s): N17.9 - ACUTE KIDNEY FAILURE, UNSPECIFIED (4) Dehydration Current Visit: Yes Status: Acute Assessment & Plan: - Improving today - CMP reviewed - IVF Code(s): E86.0 - DEHYDRATION (5) Hypokalemia Current Visit: Yes Status: Acute Assessment & Plan: - K+ 3.2 this AM and replaced- recheck at noon- trend - tele Code(s): E87.6 - HYPOKALEMIA (6) Urinary tract infection Current Visit: Yes Status: Acute Assessment & Plan: - Ceftriaxone stopped - Merrem started - UC pending - Likely 2:2 ongoing diarrhea Code(s): N39.0 - URINARY TRACT INFECTION, SITE NOT SPECIFIED (7) Melena Current Visit: Yes Status: Acute Assessment & Plan: - Protonix BID Code(s): K92.1 - MELENA (8) Obesity (BMI 30-39.9) Current Visit: Yes Status: Chronic Assessment & Plan: - Advised diet and exercise control VTE: SCD's PPI: Protonix Next of KIN: Sibling Latrice [phone] D/C plan: 1-2 days Code status: Full Mgnt and plan of care time > 40 minutes Code(s): E66.9 - OBESITY, UNSPECIFIED
[2024-09-09] MEDS ORDERED: FLAGYL 500 MG IVPB 500 MG/100 ML BAG IV SCH (12:00)
[2024-09-09 12:36] LABS: Potassium 3.8 mmol/L (3.5-5.1)
[2024-09-09] MEDS ORDERED: Merrem 1 GM in Sodium Chloride 0.9% 100 ML IV SCH (14:00)
[2024-09-09] MEDS: PROTONIX 40 MG IV IV SCH (14:23)
[2024-09-09] MEDS: MERREM IV SCH (14:24)
[2024-09-09] MEDS: SODIUM CHLORIDE 0.9% IV SCH (14:24)
[2024-09-09] MEDS: ANASPAZ 0.125 MG PO SCH (14:40)
[2024-09-09] MEDS ORDERED: PYRIDIUM 200 MG PO SCH (15:00)
[2024-09-09 16:52] LABS: 027 TOX PROD PRESUMPTIVE NEGATIVE (NEGATIVE); TOXIGENIC C. DIFF ORG NEGATIVE (NEGATIVE)
[2024-09-09] MEDS: Cyclobenzaprine 10 MG PO SCH (22:24)
[2024-09-09] MEDS: DESYREL 50 MG PO SCH (22:25)
[2024-09-09] MEDS: ATARAX 25 MG PO SCH (22:25)
[2024-09-10] MEDS: NEURONTIN PO ONE (00:30)
[2024-09-10 06:26] LABS: Hematocrit 32.4 % (34.1-44.9); Hemoglobin 10.7 g/dL (11.2-15.7); Mean Corpuscular Hemoglobin 28.1 pg (25.6-32.2); Mean Corpuscular Hgb Concent. 33.0 g/dL (32.2-35.5); Platelet Count 314 x10^3/uL (182-369); Red Blood Count 3.81 x10^6/uL (3.93-5.22); White Blood Count 6.9 x10^3/uL (3.98-10.04)
[2024-09-10 06:29] LABS: Calcium 8.6 mg/dL (8.4-10.2); Carbon Dioxide 24.0 mmol/L (22-30); Creatinine 1 1.18 mg/dL (0.52-1.04); EST GLOMERULAR FILTRATION RATE 50.3 ML/MIN; Glucose 106.0 mg/dL (74-106); Potassium 3.3 mmol/L (3.5-5.1); SGOT/AST 22.0 U/L (14-36); SGPT/ALT 19.0 U/L (0-35); Total Protein 6.8 g/dL (6.3-8.2)
[2024-09-10] MEDS: SYNTHROID 50 MCG PO SCH (07:59)
[2024-09-10] MEDS: Klor Con PO ONE (07:59)
--- NOTE | 2024-09-10 12:40 | PCM.NOTE ---
Date and Time: 09/10/24 1234 Subjective Assessment: 09/09/24 Ms. Cisneros is a 69-year-old female with a medical history of hypertension, hypothyroidism, and anxiety who was referred to the emergency department by her primary care provider for evaluation of acute kidney injury and diarrhea. She reported experiencing a week of persistent loose stools, intermittent fever, and symptoms of a urinary tract infection, though she had not yet started antibiotics. In the ED, her blood pressure was noted to be low, and labs revealed a creatinine level of 4.2, potassium of 2.9, and a positive urinalysis with leukocyte esterase, numerous white blood cells, and blood. She was started on antibiotics and admitted for further management. On 09/09, she remained in bed and was updated on her lab and imaging results. Her antibiotics were changed from Ceftriaxone to Meropenem to cover for colitis and possible diverticulitis, as CT imaging showed right lower quadrant paracolic fat stranding. Although she denied abdominal pain, she continued to have frequent bowel movements overnight and reported that her stools appeared darker and possibly bloody. She was started on Protonix BID, probiotics, and medication for bladder spasms. Her most recent potassium was 3.2 and was repleted; a recheck was planned for noon. Kidney function has shown improvement but remains above baseline, and IV fluids are being continued. She reported no further concerns at this time and noted that her last colonoscopy was three years ago with Dr. Garcia at [facility]. Urine culture is pending. 09/10/24 The patient is resting in bed and reports feeling much better overall. She stated she had one loose bowel movement overnight and initially felt well enough to go home today. However, she experienced another loose stool later in the morning, so the decision was made for her to remain hospitalized overnight for continued monitoring. Her potassium level was 3.3 and has been repleted. Her creatinine has improved to 1.18, with a baseline of 1.03. Urine culture remains pending. IV antibiotics and fluids will be continued. The patient reported experiencing significant leg restlessness overnight and noted that she did not receive her usual dose of gabapentin; this has been adjusted to her normal dosing schedule. Additionally, her trazodone dose was found to be incorrect and has now been corrected and will be administered at the proper dose moving forward. C. difficile testing was negative, and she will continue taking probiotics. The patient denies any further concerns at this time. - Review of Systems Constitutional: No Fever, No Chills Eyes: No Symptoms Ears, Nose, & Throat: No Symptoms Respiratory: No Cough, No Short Of Breath Cardiac: No Chest Pain, No Edema, No Syncope Abdominal/Gastrointestinal: Diarrhea, No Abdominal Pain, No Nausea, No Vomiting Genitourinary Symptoms: No Dysuria Musculoskeletal: No Back Pain, No Neck Pain Skin: No Rash Neurological: No Dizziness, No Focal Weakness, No Sensory Changes Psychological: No Symptoms Endocrine: No Symptoms Hematologic/Lymphatic: No Symptoms Immunological/Allergic: No Symptoms Objective Exam General Appearance: no apparent distress, alert, obese Neurologic Exam: alert, oriented x 3, cooperative, normal mood/affect, nml cerebellar function, sensation nml, No motor deficits Skin Exam: normal color, warm, dry Eye Exam: PERRL, EOMI, eyes nml inspection Ears, Nose, Throat Exam: normal ENT inspection, pharynx normal, moist mucous membranes Neck Exam: normal inspection, non-tender, supple, full range of motion Respiratory Exam: normal breath sounds, lungs clear, No respiratory distress Cardiovascular Exam: regular rate/rhythm, normal heart sounds Gastrointestinal/Abdomen Exam: soft, No tenderness, No mass Extremity Exam: normal inspection, normal range of motion Back Exam: normal inspection, normal range of motion, No CVA tenderness, No vertebral tenderness Pelvic Exam: deferred Rectal Exam: deferred Objective Data Vital Signs: Vital Signs - 24 hr Temp Pulse Resp BP Pulse Ox 09/10/24 11:36 97.8 F 58 L 16 104/53 93 L 09/10/24 07:26 98 F 66 16 138/65 98 09/10/24 04:00 97.5 F 66 16 147/62 95 09/10/24 00:00 97.5 F 66 16 147/62 95 09/09/24 19:54 98.4 F 73 19 113/59 95 09/09/24 16:00 97.5 F 64 18 113/54 98 Pain Assessment - Last Documented Pain Intensity 0 Intake and Output: Intake & Output 09/08/24 09/09/24 09/10/24 09/11/24 11:59 11:59 11:59 11:59 Intake Total 2426 4120 Output Total 400 Balance 2025 4120 Weight 96.8 kg Lab Results: Lab Results-Last 24 Hours 09/09/24 09/09/24 09/10/24 Range/Units 12:05 Unknown 05:20 WBC 6.9 (3.98-10.04) x10^3/uL RBC 3.81 L (3.93-5.22) x10^6/uL Hgb 10.7 L (11.2-15.7) g/dL Hct 32.4 L (34.1-44.9) % MCV 85.0 (79.4-94.8) fL MCH 28.1 (25.6-32.2) pg MCHC 33.0 (32.2-35.5) g/dL RDW 13.7 (11.7-14.4) % Plt Count 314 (182-369) x10^3/uL MPV 9.5 (9.4-12.3) fL Sodium (135-145) mmol/L Potassium 3.8 (3.5-5.1) mmol/L Chloride (98-107) mmol/L Carbon Dioxide (22-30) mmol/L Anion Gap (5-15) MEQ/L BUN (7-17) mg/dL Creatinine (0.52-1.04) mg/dL Estimated GFR ML/MIN Glucose (74-106) mg/dL Calcium (8.4-10.2) mg/dL Magnesium 2.0 (1.6-2.3) mg/dL Total Bilirubin (0.2-1.3) mg/dL AST (14-36) U/L ALT (0-35) U/L Alkaline Phosphatase (38-126) U/L Serum Total Protein (6.3-8.2) g/dL Albumin (3.5-5.0) g/dL C. difficile Screen NEGATIVE (NEGATIVE) C.difficile [id number]-[id number] PRESUMPTIVE NEGATIVE (NEGATIVE) 09/10/24 Range/Units 05:20 WBC (3.98-10.04) x10^3/uL RBC (3.93-5.22) x10^6/uL Hgb (11.2-15.7) g/dL Hct (34.1-44.9) % MCV (79.4-94.8) fL MCH (25.6-32.2) pg MCHC (32.2-35.5) g/dL RDW (11.7-14.4) % Plt Count (182-369) x10^3/uL MPV (9.4-12.3) fL Sodium 141 D (135-145) mmol/L Potassium 3.3 L (3.5-5.1) mmol/L Chloride 109 H (98-107) mmol/L Carbon Dioxide 24 (22-30) mmol/L Anion Gap 11.4 (5-15) MEQ/L BUN 19 H (7-17) mg/dL Creatinine 1.18 H (0.52-1.04) mg/dL Estimated GFR 50.3 ML/MIN Glucose 106 (74-106) mg/dL Calcium 8.6 (8.4-10.2) mg/dL Magnesium (1.6-2.3) mg/dL Total Bilirubin 0.10 L (0.2-1.3) mg/dL AST 22 (14-36) U/L ALT 19 (0-35) U/L Alkaline Phosphatase 100 (38-126) U/L Serum Total Protein 6.8 (6.3-8.2) g/dL Albumin 3.3 L (3.5-5.0) g/dL C. difficile Screen (NEGATIVE) C.difficile 027-NAP1-B1 (NEGATIVE) Radiology Exams: Radiology Procedures Category Date Time Status ABDOMEN AND PELVIS W/0 CONTRAS [CT] Routine Exams 09/08/24 23:02 Completed Medications: Medications Generic Name Dose Route Start Last Admin Trade Name Freq PRN Reason Stop Dose Admin Acetaminophen 650 mg 09/09/24 11:42 Acetaminophen 325 Mg Tablet PO 10/09/24 11:41 Q6H PRN PRN PAIN AND/OR FEVER Aripiprazole 5 mg 09/09/24 10:00 09/10/24 09:25 Aripiprazole 10 Mg Tablet PO 10/09/24 09:59 5 mg DAILY ELAINE Administration Clonazepam 0.5 mg 09/09/24 10:00 09/10/24 09:25 Clonazepam 0.5 Mg Tablet PO 10/09/24 09:59 0.5 mg DAILY ELAINE Administration Cyclobenzaprine HCl 5 mg 09/09/24 22:00 09/09/24 22:24 Cyclobenzaprine Hcl 10 Mg Tablet PO 10/09/24 21:59 5 mg QHS ELAINE Administration Gabapentin 300 mg 09/10/24 22:00 Gabapentin 300 Mg Capsule PO 10/10/24 21:59 HS ELAINE Hydroxyzine HCl 12.5 mg 09/09/24 22:00 09/09/24 22:25 Hydroxyzine Hcl 25 Mg Tablet PO 10/09/24 21:59 12.5 mg QHS ELAINE Administration Hyoscyamine 0.125 mg 09/09/24 15:00 09/10/24 10:08 Hyoscyamine Sulfate 0.125 Mg Tab.Rapdis PO 10/09/24 14:59 0.125 mg TID ELAINE Administration Sodium Chloride 1,000 mls @ 100 mls/hr 09/08/24 22:15 09/10/24 02:20 Sodium Chloride 0.9% 1000 Ml IV 10/08/24 22:14 100 mls/hr .Q10H ELAINE Administration Meropenem 500 mg/ Sodium 100 mls @ 200 mls/hr 09/09/24 13:00 09/10/24 09:24 Chloride IV 10/09/24 12:59 200 mls/hr BID ELAINE Administration Lactobacillus Acidophilus 1 tab 09/09/24 10:00 09/10/24 09:25 Lactobacillus Acidophilus 1 Tab Tablet PO 10/09/24 09:59 1 tab DAILY ELAINE Administration Levothyroxine Sodium 50 mcg 09/10/24 07:00 09/10/24 09:25 Levothyroxine Sodium 50 Mcg Tablet PO 10/10/24 06:59 Not Given QAM ELAINE Pantoprazole Sodium 40 mg 09/09/24 11:23 09/10/24 10:07 Pantoprazole 40 Mg Vial IV 10/09/24 11:22 40 mg BID ELAINE Administration Simvastatin 10 mg 09/09/24 10:00 09/10/24 09:25 Simvastatin 10 Mg Tablet PO 10/09/24 09:59 10 mg DAILY ELAINE Administration Timolol Maleate 0 ml 09/09/24 10:00 09/10/24 09:24 Timolol Maleate 0.5% 5 Ml Eye Drops OP 10/09/24 09:59 5 ml DAILY ELAINE Administration Trazodone HCl 150 mg 09/09/24 22:00 09/09/24 22:25 Trazodone Hcl 50 Mg Tablet PO 10/09/24 21:59 150 mg QHS ELAINE Administration Venlafaxine HCl 150 mg 09/09/24 10:00 09/10/24 09:24 Venlafaxine Hcl 75 Mg Extended Release Capsule PO 10/09/24 09:59 150 mg DAILY ELAINE Administration Discontinued Medications Generic Name Dose Route Start Last Admin Trade Name Alex PRN Reason Stop Dose Admin Gabapentin 300 mg 09/10/24 00:30 09/10/24 00:30 Gabapentin 300 Mg Capsule PO 09/10/24 00:31 300 mg STAT ONE Administration Sodium Chloride 1,000 mls @ 999 mls/hr 09/08/24 17:15 09/08/24 18:37 Sodium Chloride 0.9% 1000 Ml IV 09/08/24 18:15 Infused .Q1H1M STA Infusion Sodium Chloride Confirm 09/08/24 17:25 Sodium Chloride 0.9% 1000 Ml Administered 09/08/24 17:26 Dose 1,000 mls @ ud .ROUTE .STK-MED ONE Potassium Chloride 20 meq in 100 mls @ 50 mls/hr 09/08/24 19:54 09/08/24 20:30 Potassium Chloride 20 Meq In Water 100ml IV 09/08/24 21:53 0 mls/hr STAT ONE Infusion Sodium Chloride 1,000 mls @ 250 mls/hr 09/08/24 19:55 09/08/24 20:30 Sodium Chloride 0.9% 1000 Ml IV 09/08/24 23:54 0 mls/hr .Q4H STA Infusion Potassium Chloride Confirm 09/08/24 19:56 Potassium Chloride 20 Meq In Water 100ml Administered 09/08/24 19:57 Dose 100 mls @ ud IV .STK-MED ONE Sodium Chloride Confirm 09/08/24 19:59 Sodium Chloride 0.9% 1000 Ml Administered 09/08/24 20:00 Dose 1,000 mls @ ud .ROUTE .STK-MED ONE Ceftriaxone Sodium 1 gm in 100 mls @ 200 mls/hr 09/09/24 10:00 09/09/24 11:17 Rocephin 1 Gm / 100 Ml Nacl IV 10/09/24 09:59 200 mls/hr Q24H10 ELAINE Administration Potassium Chloride 20 meq in 100 mls @ 50 mls/hr 09/08/24 22:30 09/09/24 00:55 Potassium Chloride 20 Meq In Water 100ml IV 09/09/24 02:29 50 mls/hr Q2H ELAINE Administration Metronidazole 500 mg in 100 mls @ 200 mls/hr 09/09/24 12:00 Flagyl 500 Mg Ivpb IV 10/09/24 11:59 Q6HT ELAINE Levothyroxine Sodium 50 mcg 09/09/24 10:00 09/09/24 11:17 Levothyroxine Sodium 50 Mcg Tablet PO 10/09/24 09:59 50 mcg QAM ELAINE Administration Non-Formulary Medication 150 mg 09/09/24 22:00 09/09/24 00:06 Trazodone Hcl [Trazodone Hcl] PO 10/09/24 21:59 150 mg QHS ELAINE Administration Phenazopyridine HCl 100 mg 09/09/24 15:00 Phenazopyridine Hcl 200 Mg Tablet PO 09/11/24 14:59 TID ELAINE Potassium Chloride 40 meq 09/08/24 18:14 09/08/24 18:17 Potassium Chloride Tab 10 Meq Tab PO 09/08/24 18:15 40 meq STAT ONE Administration Potassium Chloride Confirm 09/08/24 18:16 Potassium Chloride Tab 10 Meq Tab Administered 09/08/24 18:17 Dose 40 meq .ROUTE .STK-MED ONE Potassium Chloride 40 meq 09/09/24 05:16 09/09/24 05:34 Potassium Chloride Tab 10 Meq Tab PO 09/09/24 05:17 40 meq STAT ONE Administration Potassium Chloride 40 meq 09/10/24 07:45 09/10/24 07:59 Potassium Chloride Tab 10 Meq Tab PO 09/10/24 07:46 40 meq STAT ONE Administration Trazodone HCl Confirm 09/08/24 23:58 Trazodone Hcl 50 Mg Tablet Administered 09/08/24 23:59 Dose 150 mg .ROUTE .STK-MED ONE Assessment/Plan (1) Colitis Current Visit: Yes Status: Acute Code(s): K52.9 - NONINFECTIVE MATHIEU ROENTERITIS AND COLITIS, UNSPECIFIED (2) Bladder spasms Current Visit: Yes Status: Acute (3) Acute kidney injury Current Visit: Yes Status: Acute Code(s): N17.9 - ACUTE KIDNEY FAILURE, UNSPECIFIED (4) Dehydration Current Visit: Yes Status: Acute Code(s): E86.0 - DEHYDRATION (5) Hypokalemia Current Visit: Yes Status: Acute Code(s): E87.6 - HYPOKALEMIA (6) Urinary tract infection Current Visit: Yes Status: Acute Code(s): N39.0 - URINARY TRACT INFECTION, SITE NOT SPECIFIED (7) Melena Current Visit: Yes Status: Acute Code(s): K92.1 - MELENA (8) Obesity (BMI 30-39.9) Current Visit: Yes Status: Chronic Assessment & Plan: (1) Colitis Current Visit: Yes Status: Acute Assessment & Plan: - Merrem - CBC, CMP reviewed - Tylenol 650 mg PRN for pain - CT abd/pelvis: 1. Mild pericolic fat stranding in right lower quadrant with no obvious bowel wall thickening - could represent early colitis- new finding 2. Interval unchanged mild hepatomegaly 3. 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 No other new findings - C-Diff negative 09/10 - 1 loose stool overnight and 1 today this AM- this is improved - Probiotic - Continue IVF and antbx - CBC, CMP reviewed Code(s): K52.9 - NONINFECTIVE GASTROENTERITIS AND COLITIS, UNSPECIFIED (2) Bladder spasms Current Visit: Yes Status: Acute Assessment & Plan: - Hyoscyamine TID (3) Acute kidney injury Current Visit: Yes Status: Acute Assessment & Plan: - Creat 2.69- BL 1.03 - IVF 09/10 - Creat 1.18 Code(s): N17.9 - ACUTE KIDNEY FAILURE, UNSPECIFIED (4) Dehydration Current Visit: Yes Status: Acute Assessment & Plan: - Improving today - CMP reviewed - IVF Code(s): E86.0 - DEHYDRATION (5) Hypokalemia Current Visit: Yes Status: Acute Assessment & Plan: - K+ 3.2 this AM and replaced- recheck at noon- trend - tele 09/10 - K+ 3.3- replaced- trend Code(s): E87.6 - HYPOKALEMIA (6) Urinary tract infection Current Visit: Yes Status: Acute Assessment & Plan: - Ceftriaxone stopped - Merrem started - UC pending - Likely 2:2 ongoing diarrhea Code(s): N39.0 - URINARY TRACT INFECTION, SITE NOT SPECIFIED (7) Melena Current Visit: Yes Status: Acute Assessment & Plan: - Protonix BID Code(s): K92.1 - MELENA (8) Obesity (BMI 30-39.9) Current Visit: Yes Status: Chronic Assessment & Plan: - Advised diet and exercise control VTE: SCD's PPI: Protonix Next of KIN: Sibling Latrice KoenigHluago-[phone] D/C plan: tomorrow Code status: Full Mgnt and plan of care time > 35 minutes Code(s): E66.9 - OBESITY, UNSPECIFIED Code(s): E66.9 - OBESITY, UNSPECIFIED
[2024-09-10] MEDS ORDERED: IMODIUM 2 MG PO PRN (13:47)
[2024-09-10] MEDS: IMODIUM 2 MG PO ONE (14:25)
[2024-09-10] MEDS: NEURONTIN PO SCH (21:22)
[2024-09-10] MEDS: TYLENOL 325 MG PO PRN (21:22)
[2024-09-10] MEDS: DESYREL 50 MG PO SCH (21:23)
[2024-09-11 06:17] LABS: Hematocrit 30.0 % (34.1-44.9); Hemoglobin 9.5 g/dL (11.2-15.7); Mean Corpuscular Hemoglobin 27.5 pg (25.6-32.2); Mean Corpuscular Hgb Concent. 31.7 g/dL (32.2-35.5); Platelet Count 280 x10^3/uL (182-369); Red Blood Count 3.45 x10^6/uL (3.93-5.22); White Blood Count 5.8 x10^3/uL (3.98-10.04)
[2024-09-11 06:42] LABS: Calcium 8.5 mg/dL (8.4-10.2); Carbon Dioxide 23.0 mmol/L (22-30); Creatinine 1 0.9 mg/dL (0.52-1.04); EST GLOMERULAR FILTRATION RATE 69.6 ML/MIN; Glucose 95.0 mg/dL (74-106); Potassium 3.6 mmol/L (3.5-5.1); SGOT/AST 57.0 U/L (14-36); SGPT/ALT 31.0 U/L (0-35); Total Protein 6.5 g/dL (6.3-8.2)
[2024-09-11] MEDS: Merrem 1 GM in Sodium Chloride 0.9% 100 ML IV SCH ×2 (09:29→17:24)
--- NOTE | 2024-09-11 11:11 | PCM.NOTE ---
Date and Time: 09/11/24 1102 Subjective Assessment: 09/09/24 Ms. Cisneros is a 69-year-old female with a medical history of hypertension, hypothyroidism, and anxiety who was referred to the emergency department by her primary care provider for evaluation of acute kidney injury and diarrhea. She reported experiencing a week of persistent loose stools, intermittent fever, and symptoms of a urinary tract infection, though she had not yet started antibiotics. In the ED, her blood pressure was noted to be low, and labs revealed a creatinine level of 4.2, potassium of 2.9, and a positive urinalysis with leukocyte esterase, numerous white blood cells, and blood. She was started on antibiotics and admitted for further management. On 09/09, she remained in bed and was updated on her lab and imaging results. Her antibiotics were changed from Ceftriaxone to Meropenem to cover for colitis and possible diverticulitis, as CT imaging showed right lower quadrant paracolic fat stranding. Although she denied abdominal pain, she continued to have frequent bowel movements overnight and reported that her stools appeared darker and possibly bloody. She was started on Protonix BID, probiotics, and medication for bladder spasms. Her most recent potassium was 3.2 and was repleted; a recheck was planned for noon. Kidney function has shown improvement but remains above baseline, and IV fluids are being continued. She reported no further concerns at this time and noted that her last colonoscopy was three years ago with Dr. Garcia at [facility]. Urine culture is pending. 09/10/24 The patient is resting in bed and reports feeling much better overall. She stated she had one loose bowel movement overnight and initially felt well enough to go home today. However, she experienced another loose stool later in the morning, so the decision was made for her to remain hospitalized overnight for continued monitoring. Her potassium level was 3.3 and has been repleted. Her creatinine has improved to 1.18, with a baseline of 1.03. Urine culture remains pending. IV antibiotics and fluids will be continued. The patient reported experiencing significant leg restlessness overnight and noted that she did not receive her usual dose of gabapentin; this has been adjusted to her normal dosing schedule. Additionally, her trazodone dose was found to be incorrect and has now been corrected and will be administered at the proper dose moving forward. C. difficile testing was negative, and she will continue taking probiotics. The patient denies any further concerns at this time. 09/11/24 The patient is resting in bed and reports experiencing five loose stools yesterday, followed by one loose stool this morning and an episode of incontinence in bed. She states she is beginning to feel weak. Physical therapy is scheduled to evaluate her tomorrow. Questran Lite will be initiated today to help manage the diarrhea. Merrem was increased overnight by the covering provider due to improved kidney function. C. difficile testing returned negative. Urine culture shows gram-negative bacteria, with sensitivities pending. Her potassium level has improved to 3.6. The patient denies any abdominal pain or other symptoms at this time. If her symptoms do not improve by tomorrow, a repeat CT of the abdomen and pelvis will be considered for further evaluation. - Review of Systems Constitutional: Weakness, No Fever, No Chills Eyes: No Symptoms Ears, Nose, & Throat: No Symptoms Respiratory: No Cough, No Short Of Breath Cardiac: No Chest Pain, No Edema, No Syncope Abdominal/Gastrointestinal: Diarrhea, No Abdominal Pain, No Nausea, No Vomiting Genitourinary Symptoms: No Dysuria Musculoskeletal: No Back Pain, No Neck Pain Skin: No Rash Neurological: No Dizziness, No Focal Weakness, No Sensory Changes Psychological: No Symptoms Endocrine: No Symptoms Hematologic/Lymphatic: No Symptoms Immunological/Allergic: No Symptoms Objective Exam General Appearance: no apparent distress, alert, obese Neurologic Exam: alert, oriented x 3, cooperative, normal mood/affect, nml cerebellar function, sensation nml, No motor deficits Skin Exam: normal color, warm, dry Eye Exam: PERRL, EOMI, eyes nml inspection Ears, Nose, Throat Exam: normal ENT inspection, pharynx normal, moist mucous membranes Neck Exam: normal inspection, non-tender, supple, full range of motion Respiratory Exam: normal breath sounds, lungs clear, No respiratory distress Cardiovascular Exam: regular rate/rhythm, normal heart sounds Gastrointestinal/Abdomen Exam: soft, No tenderness, No mass Extremity Exam: normal inspection, normal range of motion Back Exam: normal inspection, normal range of motion, No CVA tenderness, No vertebral tenderness Pelvic Exam: deferred Rectal Exam: deferred Objective Data Vital Signs: Vital Signs - 24 hr Temp Pulse Resp BP Pulse Ox 09/11/24 07:01 97.9 F 62 16 132/72 93 L 09/11/24 04:00 97.8 F 56 L 16 130/64 96 09/10/24 23:13 97.1 F 68 16 154/65 95 09/10/24 20:00 98.7 F 66 18 120/61 95 09/10/24 16:00 97.8 F 69 16 131/68 93 L 09/10/24 11:36 97.8 F 58 L 16 104/53 93 L Pain Assessment - Last Documented Pain Intensity 0 Pain Scale Used 0-10 Pain Scale Intake and Output: Intake & Output 09/08/24 09/09/24 09/10/24 09/11/24 11:59 11:59 11:59 11:59 Intake Total 2426 4120 5404 Output Total 400 1 Balance 2025 4120 5403 Weight 96.8 kg Lab Results: Lab Results-Last 24 Hours 09/11/24 09/11/24 Range/Units 05:22 05:22 WBC 5.8 (3.98-10.04) x10^3/uL RBC 3.45 L (3.93-5.22) x10^6/uL Hgb 9.5 L (11.2-15.7) g/dL Hct 30.0 L (34.1-44.9) % MCV 87.0 (79.4-94.8) fL MCH 27.5 (25.6-32.2) pg MCHC 31.7 L (32.2-35.5) g/dL RDW 13.9 (11.7-14.4) % Plt Count 280 (182-369) x10^3/uL MPV 9.3 L (9.4-12.3) fL Sodium 142 (135-145) mmol/L Potassium 3.6 (3.5-5.1) mmol/L Chloride 112 H (98-107) mmol/L Carbon Dioxide 23 (22-30) mmol/L Anion Gap 10.5 (5-15) MEQ/L BUN 12 (7-17) mg/dL Creatinine 0.90 (0.52-1.04) mg/dL Estimated GFR 69.6 ML/MIN Glucose 95 (74-106) mg/dL Calcium 8.5 (8.4-10.2) mg/dL Total Bilirubin 0.20 (0.2-1.3) mg/dL AST 57 H (14-36) U/L ALT 31 (0-35) U/L Alkaline Phosphatase 103 (38-126) U/L Serum Total Protein 6.5 (6.3-8.2) g/dL Albumin 3.1 L (3.5-5.0) g/dL Medications: Medications Generic Name Dose Route Start Last Admin Trade Name Freq PRN Reason Stop Dose Admin Acetaminophen 650 mg 09/09/24 11:42 09/10/24 21:22 Acetaminophen 325 Mg Tablet PO 10/09/24 11:41 650 mg Q6H PRN PRN Administration PAIN AND/OR FEVER Aripiprazole 5 mg 09/09/24 10:00 09/11/24 09:30 Aripiprazole 10 Mg Tablet PO 10/09/24 09:59 5 mg DAILY ELAINE Administration Clonazepam 0.5 mg 09/09/24 10:00 09/11/24 09:30 Clonazepam 0.5 Mg Tablet PO 10/09/24 09:59 0.5 mg DAILY ELAINE Administration Cyclobenzaprine HCl 5 mg 09/09/24 22:00 09/10/24 21:21 Cyclobenzaprine Hcl 10 Mg Tablet PO 10/09/24 21:59 5 mg QHS ELAINE Administration Gabapentin 300 mg 09/10/24 22:00 09/10/24 21:22 Gabapentin 300 Mg Capsule PO 10/10/24 21:59 300 mg HS ELAINE Administration Hydroxyzine HCl 12.5 mg 09/09/24 22:00 09/10/24 21:22 Hydroxyzine Hcl 25 Mg Tablet PO 10/09/24 21:59 12.5 mg QHS ELAINE Administration Hyoscyamine 0.125 mg 09/09/24 15:00 09/11/24 09:31 Hyoscyamine Sulfate 0.125 Mg Tab.Rapdis PO 10/09/24 14:59 0.125 mg TID ELAINE Administration Sodium Chloride 1,000 mls @ 100 mls/hr 09/08/24 22:15 09/10/24 23:02 Sodium Chloride 0.9% 1000 Ml IV 10/08/24 22:14 100 mls/hr .Q10H ELAINE Administration Meropenem 1 gm/ Sodium 100 mls @ 200 mls/hr 09/11/24 10:00 09/11/24 09:29 Chloride IV 09/14/24 09:59 200 mls/hr BID ELAINE Administration Lactobacillus Acidophilus 1 tab 09/09/24 10:00 09/11/24 09:30 Lactobacillus Acidophilus 1 Tab Tablet PO 10/09/24 09:59 1 tab DAILY ELAINE Administration Levothyroxine Sodium 50 mcg 09/10/24 07:00 09/11/24 08:03 Levothyroxine Sodium 50 Mcg Tablet PO 10/10/24 06:59 50 mcg QAM ELAINE Administration Pantoprazole Sodium 40 mg 09/09/24 11:23 09/11/24 09:29 Pantoprazole 40 Mg Vial IV 10/09/24 11:22 40 mg BID ELAINE Administration Simvastatin 10 mg 09/09/24 10:00 09/11/24 09:30 Simvastatin 10 Mg Tablet PO 10/09/24 09:59 10 mg DAILY ELAINE Administration Timolol Maleate 0 ml 09/09/24 10:00 09/11/24 09:31 Timolol Maleate 0.5% 5 Ml Eye Drops OP 10/09/24 09:59 5 ml DAILY ELAINE Administration Trazodone HCl 200 mg 09/10/24 22:00 09/10/24 21:23 Trazodone Hcl 50 Mg Tablet PO 10/10/24 21:59 200 mg HS ELAINE Administration Venlafaxine HCl 150 mg 09/09/24 10:00 09/11/24 09:29 Venlafaxine Hcl 75 Mg Extended Release Capsule PO 10/09/24 09:59 150 mg DAILY ELAINE Administration Discontinued Medications Generic Name Dose Route Start Last Admin Trade Name Freq PRN Reason Stop Dose Admin Gabapentin 300 mg 09/10/24 00:30 09/10/24 00:30 Gabapentin 300 Mg Capsule PO 09/10/24 00:31 300 mg STAT ONE Administration Sodium Chloride 1,000 mls @ 999 mls/hr 09/08/24 17:15 09/08/24 18:37 Sodium Chloride 0.9% 1000 Ml IV 09/08/24 18:15 Infused .Q1H1M STA Infusion Sodium Chloride Confirm 09/08/24 17:25 Sodium Chloride 0.9% 1000 Ml Administered 09/08/24 17:26 Dose 1,000 mls @ ud .ROUTE .STK-MED ONE Potassium Chloride 20 meq in 100 mls @ 50 mls/hr 09/08/24 19:54 09/08/24 20:30 Potassium Chloride 20 Meq In Water 100ml IV 09/08/24 21:53 0 mls/hr STAT ONE Infusion Sodium Chloride 1,000 mls @ 250 mls/hr 09/08/24 19:55 09/08/24 20:30 Sodium Chloride 0.9% 1000 Ml IV 09/08/24 23:54 0 mls/hr .Q4H STA Infusion Potassium Chloride Confirm 09/08/24 19:56 Potassium Chloride 20 Meq In Water 100ml Administered 09/08/24 19:57 Dose 100 mls @ ud IV .STK-MED ONE Sodium Chloride Confirm 09/08/24 19:59 Sodium Chloride 0.9% 1000 Ml Administered 09/08/24 20:00 Dose 1,000 mls @ ud .ROUTE .STK-MED ONE Ceftriaxone Sodium 1 gm in 100 mls @ 200 mls/hr 09/09/24 10:00 09/09/24 11:17 Rocephin 1 Gm / 100 Ml Nacl IV 10/09/24 09:59 200 mls/hr Q24H10 ELAINE Administration Potassium Chloride 20 meq in 100 mls @ 50 mls/hr 09/08/24 22:30 09/09/24 00:55 Potassium Chloride 20 Meq In Water 100ml IV 09/09/24 02:29 50 mls/hr Q2H ELAINE Administration Metronidazole 500 mg in 100 mls @ 200 mls/hr 09/09/24 12:00 Flagyl 500 Mg Ivpb IV 10/09/24 11:59 Q6HT ELAINE Meropenem 500 mg/ Sodium 100 mls @ 200 mls/hr 09/09/24 13:00 09/10/24 21:23 Chloride IV 10/09/24 12:59 200 mls/hr BID ELAIEN Administration Levothyroxine Sodium 50 mcg 09/09/24 10:00 09/09/24 11:17 Levothyroxine Sodium 50 Mcg Tablet PO 10/09/24 09:59 50 mcg QAM ELAINE Administration Loperamide HCl 4 mg 09/10/24 13:47 09/10/24 14:25 Loperamide Hcl 2 Mg Capsule PO 09/10/24 13:48 4 mg STAT ONE Administration Loperamide HCl 2 mg 09/10/24 13:47 Loperamide Hcl 2 Mg Capsule PO 10/10/24 13:46 PRN PRN DIARRHEA Non-Formulary Medication 150 mg 09/09/24 22:00 09/09/24 00:06 Trazodone Hcl [Trazodone Hcl] PO 10/09/24 21:59 150 mg QHS ELAINE Administration Phenazopyridine HCl 100 mg 09/09/24 15:00 Phenazopyridine Hcl 200 Mg Tablet PO 09/11/24 14:59 TID ELAINE Potassium Chloride 40 meq 09/08/24 18:14 09/08/24 18:17 Potassium Chloride Tab 10 Meq Tab PO 09/08/24 18:15 40 meq STAT ONE Administration Potassium Chloride Confirm 09/08/24 18:16 Potassium Chloride Tab 10 Meq Tab Administered 09/08/24 18:17 Dose 40 meq .ROUTE .STK-MED ONE Potassium Chloride 40 meq 09/09/24 05:16 09/09/24 05:34 Potassium Chloride Tab 10 Meq Tab PO 09/09/24 05:17 40 meq STAT ONE Administration Potassium Chloride 40 meq 09/10/24 07:45 09/10/24 07:59 Potassium Chloride Tab 10 Meq Tab PO 09/10/24 07:46 40 meq STAT ONE Administration Trazodone HCl Confirm 09/08/24 23:58 Trazodone Hcl 50 Mg Tablet Administered 09/08/24 23:59 Dose 150 mg .ROUTE .STK-MED ONE Trazodone HCl 150 mg 09/09/24 22:00 09/09/24 22:25 Trazodone Hcl 50 Mg Tablet PO 10/09/24 21:59 150 mg QHS ELAINE Administration Multi-Disciplinary Progress Notes: Multi-Disciplinary Progress Notes 09/11/24 07:19 Pharmacy Note by Bo Lund Creatinine has improved. Will increase Merrem to 1gm iv q12h. Initialized on 09/11/24 07:19 - END OF NOTE Assessment/Plan (1) Colitis Current Visit: Yes Status: Acute Code(s): K52.9 - NONINFECTIVE GASTROENTERITIS AND COLITIS, UNSPECIFIED (2) Bladder spasms Current Visit: Yes Status: Acute (3) Acute kidney injury Current Visit: Yes Status: Acute Code(s): N17.9 - ACUTE KIDNEY FAILURE, UNSPECIFIED (4) Dehydration Current Visit: Yes Status: Acute Code(s): E86.0 - DEHYDRATION (5) Hypokalemia Current Visit: Yes Status: Acute Code(s): E87.6 - HYPOKALEMIA (6) Urinary tract infection Current Visit: Yes Status: Acute Code(s): N39.0 - URINARY TRACT INFECTION, SITE NOT SPECIFIED (7) Melena Current Visit: Yes Status: Acute Code(s): K92.1 - MELENA (8) Obesity (BMI 30-39.9) Current Visit: Yes Status: Chronic Assessment & Plan: (1) Colitis Current Visit: Yes Status: Acute Assessment & Plan: - Merrem - CBC, CMP reviewed - Tylenol 650 mg PRN for pain - CT abd/pelvis: 1. Mild pericolic fat stranding in right lower quadrant with no obvious bowel wall thickening - could represent early colitis- new finding 2. Interval unchanged mild hepatomegaly 3. 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 No other new findings - C-Diff negative 09/10 - 1 loose stool overnight and 1 today this AM- this is improved - Probiotic - Continue IVF and antbx - CBC, CMP reviewed 09/11 - PT eval for associated weakness in AM - Start Questran light daily - Pt reports 5 loose stools yesterday and 2 today - CBC, CMP reviewed - Hgb dropping at 9.5- trend - Merrem dosing increased d/t improved kidney function - Consider repeat CT abd/pelvis in AM - Denies any abd. pain Code(s): K52.9 - NONINFECTIVE GASTROENTERITIS AND COLITIS, UNSPECIFIED (2) Bladder spasms Current Visit: Yes Status: Acute Assessment & Plan: - Hyoscyamine TID 09/11 - improved (3) Acute kidney injury Current Visit: Yes Status: Acute Assessment & Plan: - Creat 2.69- BL 1.03 - IVF 09/10 - Creat 1.18 09/11 - resolved Code(s): N17.9 - ACUTE KIDNEY FAILURE, UNSPECIFIED (4) Dehydration Current Visit: Yes Status: Acute Assessment & Plan: - Improving today - CMP reviewed - IVF 09/11 - resolved Code(s): E86.0 - DEHYDRATION (5) Hypokalemia Current Visit: Yes Status: Acute Assessment & Plan: - K+ 3.2 this AM and replaced- recheck at noon- trend - tele 09/10 - K+ 3.3- replaced- trend 09/11 - resolved Code(s): E87.6 - HYPOKALEMIA (6) Urinary tract infection Current Visit: Yes Status: Acute Assessment & Plan: - Ceftriaxone stopped - Merrem started - UC pending - Likely 2:2 ongoing diarrhea 09/11 - UC gram negative- sensitivity pending - Merrem increased Code(s): N39.0 - URINARY TRACT INFECTION, SITE NOT SPECIFIED (7) Melena Current Visit: Yes Status: Acute Assessment & Plan: - Protonix BID Code(s): K92.1 - MELENA (8) Obesity (BMI 30-39.9) Current Visit: Yes Status: Chronic Assessment & Plan: - Advised diet and exercise control VTE: SCD's PPI: Protonix Next of KIN: Sibling Latrice [phone] D/C plan: 1-2 days Code status: Full Mgnt and plan of care time > 35 minutes Code(s): E66.9 - OBESITY, UNSPECIFIED Code(s): E66.9 - OBESITY, UNSPECIFIED
[2024-09-11] MEDS: QUESTRAN Light 4 GM Packet PO SCH (11:28)
[2024-09-11] MEDS: DUONEB 0.5-3 MG/3 ml Neb IH ONE (15:36)
--- NOTE | 2024-09-11 16:37 | XRAY ---
CLINICAL HISTORY: wheezing COMPARISON: 12/04/2023 TECHNIQUE: X-ray images of the chest were obtained in posteroanterior (AP) projections. FINDINGS: Pulmonary Parenchyma: Overinflated lung with COPD changes. No pulmonary nodules were identified. Blunted both costophrenic angle., minimal pleural effusion or pleural thickening//projectional. Heart and Mediastinum: Heart size and shape are normal. No mediastinal widening or masses. No hilar or mediastinal lymphadenopathy. Prominent aortic arch Bony Thorax: Bony thorax appears intact without fractures or deformities. Lower cervical vertebra internal fixation is seen. Soft Tissues: Soft tissues overlying the chest wall are unremarkable. IMPRESSION: 1. blunted both costophrenic angle, minimal pleural effusion or pleural thickening/projectional. 2. No other acute cardiopulmonary abnormalities were identified. 3. Overinflated lung with COPD changes. (stable). Electronically Signed by: Kevin Bello MD. (09/11/2024 16:34:10 EDT)
[2024-09-12 04:59] LABS: Hematocrit 35.1 % (34.1-44.9); Hemoglobin 11.0 g/dL (11.2-15.7); Mean Corpuscular Hemoglobin 27.6 pg (25.6-32.2); Mean Corpuscular Hgb Concent. 31.3 g/dL (32.2-35.5); Platelet Count 309 x10^3/uL (182-369); Red Blood Count 3.99 x10^6/uL (3.93-5.22); White Blood Count 9.7 x10^3/uL (3.98-10.04)
[2024-09-12 05:17] LABS: Calcium 8.8 mg/dL (8.4-10.2); Carbon Dioxide 26.0 mmol/L (22-30); Creatinine 1 0.84 mg/dL (0.52-1.04); EST GLOMERULAR FILTRATION RATE 75.7 ML/MIN; Glucose 102.0 mg/dL (74-106); Potassium 3.2 mmol/L (3.5-5.1); SGOT/AST 35.0 U/L (14-36); SGPT/ALT 32.0 U/L (0-35); Total Protein 7.6 g/dL (6.3-8.2)
--- NOTE | 2024-09-12 05:19 | PCM.NOTE ---
Date and Time: 09/12/24 0515 Subjective Assessment: Ms. Cisneros is a 69-year-old female with a history of hypertension, hypothyroidism, and anxiety, admitted on 09/09/24 for acute kidney injury and persistent diarrhea. She presented with a week of loose stools, intermittent low-grade fevers, and urinary symptoms suggestive of a UTI, though she had not yet started treatment. Initial labs revealed a creatinine of 4.2 (baseline 1.03), potassium of 2.9, and urinalysis positive for leukocyte esterase, WBCs, and blood, culture with Ecoli. She was initially started on ceftriaxone but was switched to meropenem following CT imaging, which demonstrated mild pericolic fat stranding in the right lower quadrant suggestive of early colitis. Despite denying abdominal pain, she continued to have frequent loose stools, with some appearing darker or possibly bloody. Stool C. difficile testing was negative. Her kidney function improved with IV fluids, with creatinine decreasing to 1.18. Potassium was repleted as levels improved from 2.9 to 3.6. She was also started on Protonix BID and a probiotic. On 09/11, the patient reported multiple episodes of loose stools and one episode of incontinence in bed. She expressed increasing weakness, and physical therapy evaluation was ordered. Given persistent diarrhea, Questran Lite was initiated. Gabapentin and trazodone doses were corrected to her home regimen after she reported leg restlessness. She remains afebrile and hemodynamically stable, without abdominal pain. Repeat imaging will be considered if diarrhea does not improve. Objective Data Vital Signs: Vital Signs - 24 hr Temp Pulse Resp BP Pulse Ox 09/12/24 04:00 98.2 F 67 18 150/70 94 L 09/11/24 23:47 98.5 F 60 18 140/63 94 L 09/11/24 19:52 98.5 F 69 17 148/69 97 09/11/24 15:39 98.7 F 62 16 161/74 95 09/11/24 12:00 98.6 F 59 L 16 147/75 92 L 09/11/24 07:01 97.9 F 62 16 132/72 93 L Pain Assessment - Last Documented Pain Intensity 0 Pain Scale Used 0-10 Pain Scale Intake and Output: Intake & Output 09/09/24 09/10/24 09/11/24 09/12/24 11:59 11:59 11:59 11:59 Intake Total 2425 4129 5404 2615 Output Total 400 1 Balance 2025 412 5402 2615 Weight 96.8 kg Lab Results: Lab Results-Last 24 Hours 09/11/24 09/11/24 09/12/24 Range/Units 05:22 05:22 04:30 WBC 5.8 9.7 (3.98-10.04) x10^3/uL RBC 3.45 L 3.99 (3.93-5.22) x10^6/uL Hgb 9.5 L 11.0 L (11.2-15.7) g/dL Hct 30.0 L 35.1 (34.1-44.9) % MCV 87.0 88.0 (79.4-94.8) fL MCH 27.5 27.6 (25.6-32.2) pg MCHC 31.7 L 31.3 L (32.2-35.5) g/dL RDW 13.9 13.7 (11.7-14.4) % Plt Count 280 309 (182-369) x10^3/uL MPV 9.3 L 8.7 L (9.4-12.3) fL Sodium 142 (135-145) mmol/L Potassium 3.6 (3.5-5.1) mmol/L Chloride 112 H (98-107) mmol/L Carbon Dioxide 23 (22-30) mmol/L Anion Gap 10.5 (5-15) MEQ/L BUN 12 (7-17) mg/dL Creatinine 0.90 (0.52-1.04) mg/dL Estimated GFR 69.6 ML/MIN Glucose 95 (74-106) mg/dL Calcium 8.5 (8.4-10.2) mg/dL Total Bilirubin 0.20 (0.2-1.3) mg/dL AST 57 H (14-36) U/L ALT 31 (0-35) U/L Alkaline Phosphatase 103 (38-126) U/L Serum Total Protein 6.5 (6.3-8.2) g/dL Albumin 3.1 L (3.5-5.0) g/dL Radiology Exams: Radiology Procedures Category Date Time Status CHEST 1 VIEW (PORTABLE) Urgent Exams 09/11/24 15:31 Completed Medications: Medications Generic Name Dose Route Start Last Admin Trade Name Freq PRN Reason Stop Dose Admin Acetaminophen 650 mg 09/09/24 11:42 09/11/24 19:57 Acetaminophen 325 Mg Tablet PO 10/09/24 11:41 650 mg Q6H PRN PRN Administration PAIN AND/OR FEVER Aripiprazole 5 mg 09/09/24 10:00 09/11/24 09:30 Aripiprazole 10 Mg Tablet PO 10/09/24 09:59 5 mg DAILY ELAINE Administration Cholestyramine Resin 4 gm 09/11/24 12:00 09/11/24 11:28 Cholestyramine Light 4 Gm Packet PO 10/11/24 11:59 4 gm DAILY ELAINE Administration Clonazepam 0.5 mg 09/09/24 10:00 09/11/24 09:30 Clonazepam 0.5 Mg Tablet PO 10/09/24 09:59 0.5 mg DAILY ELAINE Administration Cyclobenzaprine HCl 5 mg 09/09/24 22:00 09/11/24 21:26 Cyclobenzaprine Hcl 10 Mg Tablet PO 10/09/24 21:59 5 mg QHS ELAINE Administration Gabapentin 300 mg 09/10/24 22:00 09/11/24 21:27 Gabapentin 300 Mg Capsule PO 10/10/24 21:59 300 mg HS ELAINE Administration Hydroxyzine HCl 12.5 mg 09/09/24 22:00 09/11/24 21:27 Hydroxyzine Hcl 25 Mg Tablet PO 10/09/24 21:59 12.5 mg QHS ELAINE Administration Hyoscyamine 0.125 mg 09/09/24 15:00 09/11/24 23:16 Hyoscyamine Sulfate 0.125 Mg Tab.Rapdis PO 10/09/24 14:59 0.125 mg TID ELAINE Administration Meropenem 1 gm/ Sodium 100 mls @ 200 mls/hr 09/11/24 18:00 09/12/24 01:38 Chloride IV 09/14/24 17:59 200 mls/hr Q8H ELAINE Administration Lactobacillus Acidophilus 1 tab 09/09/24 10:00 09/11/24 09:30 Lactobacillus Acidophilus 1 Tab Tablet PO 10/09/24 09:59 1 tab DAILY ELAINE Administration Levothyroxine Sodium 50 mcg 09/10/24 07:00 09/11/24 08:03 Levothyroxine Sodium 50 Mcg Tablet PO 10/10/24 06:59 50 mcg QAM ELAINE Administration Pantoprazole Sodium 40 mg 09/09/24 11:23 09/11/24 21:26 Pantoprazole 40 Mg Vial IV 10/09/24 11:22 40 mg BID ELAINE Administration Simvastatin 10 mg 09/09/24 10:00 09/11/24 09:30 Simvastatin 10 Mg Tablet PO 10/09/24 09:59 10 mg DAILY ELAINE Administration Timolol Maleate 0 ml 09/09/24 10:00 09/11/24 09:31 Timolol Maleate 0.5% 5 Ml Eye Drops OP 10/09/24 09:59 5 ml DAILY ELAINE Administration Trazodone HCl 200 mg 09/10/24 22:00 09/11/24 21:26 Trazodone Hcl 50 Mg Tablet PO 10/10/24 21:59 200 mg HS ELAINE Administration Venlafaxine HCl 150 mg 09/09/24 10:00 09/11/24 09:29 Venlafaxine Hcl 75 Mg Extended Release Capsule PO 10/09/24 09:59 150 mg DAILY ELAINE Administration Discontinued Medications Generic Name Dose Route Start Last Admin Trade Name Freq PRN Reason Stop Dose Admin Albuterol/Ipratropium 3 ml 09/11/24 15:27 09/11/24 15:36 Ipratropium/Albuterol Sulfate 3 Ml Ampul.Neb IH 09/11/24 15:28 3 ml ONCE ONE Administration Gabapentin 300 mg 09/10/24 00:30 09/10/24 00:30 Gabapentin 300 Mg Capsule PO 09/10/24 00:31 300 mg STAT ONE Administration Sodium Chloride 1,000 mls @ 999 mls/hr 09/08/24 17:15 09/08/24 18:37 Sodium Chloride 0.9% 1000 Ml IV 09/08/24 18:15 Infused .Q1H1M STA Infusion Sodium Chloride Confirm 09/08/24 17:25 Sodium Chloride 0.9% 1000 Ml Administered 09/08/24 17:26 Dose 1,000 mls @ ud .ROUTE .STK-MED ONE Potassium Chloride 20 meq in 100 mls @ 50 mls/hr 09/08/24 19:54 09/08/24 20:30 Potassium Chloride 20 Meq In Water 100ml IV 09/08/24 21:53 0 mls/hr STAT ONE Infusion Sodium Chloride 1,000 mls @ 250 mls/hr 09/08/24 19:55 09/08/24 20:30 Sodium Chloride 0.9% 1000 Ml IV 09/08/24 23:54 0 mls/hr .Q4H STA Infusion Potassium Chloride Confirm 09/08/24 19:56 Potassium Chloride 20 Meq In Water 100ml Administered 09/08/24 19:57 Dose 100 mls @ ud IV .STK-MED ONE Sodium Chloride Confirm 09/08/24 19:59 Sodium Chloride 0.9% 1000 Ml Administered 09/08/24 20:00 Dose 1,000 mls @ ud .ROUTE .STK-MED ONE Sodium Chloride 1,000 mls @ 100 mls/hr 09/08/24 22:15 09/11/24 11:29 Sodium Chloride 0.9% 1000 Ml IV 10/08/24 22:14 100 mls/hr .Q10H ELAINE Administration Ceftriaxone Sodium 1 gm in 100 mls @ 200 mls/hr 09/09/24 10:00 09/09/24 11:17 Rocephin 1 Gm / 100 Ml Nacl IV 10/09/24 09:59 200 mls/hr Q24H10 ELAINE Administration Potassium Chloride 20 meq in 100 mls @ 50 mls/hr 09/08/24 22:30 09/09/24 00:55 Potassium Chloride 20 Meq In Water 100ml IV 09/09/24 02:29 50 mls/hr Q2H ELAINE Administration Metronidazole 500 mg in 100 mls @ 200 mls/hr 09/09/24 12:00 Flagyl 500 Mg Ivpb IV 10/09/24 11:59 Q6HT ELAINE Meropenem 500 mg/ Sodium 100 mls @ 200 mls/hr 09/09/24 13:00 09/10/24 21:23 Chloride IV 10/09/24 12:59 200 mls/hr BID ELAINE Administration Meropenem 1 gm/ Sodium 100 mls @ 200 mls/hr 09/11/24 10:00 09/11/24 09:29 Chloride IV 09/14/24 09:59 200 mls/hr BID ELAINE Administration Levothyroxine Sodium 50 mcg 09/09/24 10:00 09/09/24 11:17 Levothyroxine Sodium 50 Mcg Tablet PO 10/09/24 09:59 50 mcg QAM ELAINE Administration Loperamide HCl 4 mg 09/10/24 13:47 09/10/24 14:25 Loperamide Hcl 2 Mg Capsule PO 09/10/24 13:48 4 mg STAT ONE Administration Loperamide HCl 2 mg 09/10/24 13:47 Loperamide Hcl 2 Mg Capsule PO 10/10/24 13:46 PRN PRN DIARRHEA Non-Formulary Medication 150 mg 09/09/24 22:00 09/09/24 00:06 Trazodone Hcl [Trazodone Hcl] PO 10/09/24 21:59 150 mg QHS ELAINE Administration Phenazopyridine HCl 100 mg 09/09/24 15:00 Phenazopyridine Hcl 200 Mg Tablet PO 09/11/24 14:59 TID ELAINE Potassium Chloride 40 meq 09/08/24 18:14 09/08/24 18:17 Potassium Chloride Tab 10 Meq Tab PO 09/08/24 18:15 40 meq STAT ONE Administration Potassium Chloride Confirm 09/08/24 18:16 Potassium Chloride Tab 10 Meq Tab Administered 09/08/24 18:17 Dose 40 meq .ROUTE .STK-MED ONE Potassium Chloride 40 meq 09/09/24 05:16 09/09/24 05:34 Potassium Chloride Tab 10 Meq Tab PO 09/09/24 05:17 40 meq STAT ONE Administration Potassium Chloride 40 meq 09/10/24 07:45 09/10/24 07:59 Potassium Chloride Tab 10 Meq Tab PO 09/10/24 07:46 40 meq STAT ONE Administration Trazodone HCl Confirm 09/08/24 23:58 Trazodone Hcl 50 Mg Tablet Administered 09/08/24 23:59 Dose 150 mg .ROUTE .STK-MED ONE Trazodone HCl 150 mg 09/09/24 22:00 09/09/24 22:25 Trazodone Hcl 50 Mg Tablet PO 10/09/24 21:59 150 mg QHS ELAINE Administration Multi-Disciplinary Progress Notes: Multi-Disciplinary Progress Notes 09/11/24 07:19 Pharmacy Note by Bo Lund Creatinine has improved. Will increase Merrem to 1gm iv q12h. Initialized on 09/11/24 07:19 - END OF NOTE Assessment/Plan (1) Colitis Current Visit: Yes Status: Acute Assessment & Plan: --CT abd/pelvis on admission reviewed which demonstrated mild pericolic fat stranding in the right lower quadrant suggestive of early colitis -consider repeat imaging if no improvement -Meropenem (dose increased due to improved renal function) -Cdiff negative -Questran Lite started -Continue IVF, probiotic, Tylenol PRN -Monitor Hgb (currently 9.5); consider repeat CT if no improvement -PT ordered for weakness Code(s): K52.9 - NONINFECTIVE GASTROENTERITIS AND COLITIS, UNSPECIFIED (2) Acute kidney injury Current Visit: Yes Status: Acute Assessment & Plan: -Improved with IV fluids; creatinine decreased from 4.2 to 1.18 -Continue monitoring CMP -Monitor renal/lytes -Avoid nephrotoxic agents Code(s): N17.9 - ACUTE KIDNEY FAILURE, UNSPECIFIED (3) Bladder spasms Current Visit: Yes Status: Acute Assessment & Plan: -Hyoscyamine TID, improved (4) Dehydration Current Visit: Yes Status: Acute Assessment & Plan: Resolved -IVF continued, clinically improved Code(s): E86.0 - DEHYDRATION (5) UTI (urinary tract infection) Current Visit: Yes Status: Acute Assessment & Plan: -Ucult with ecoli -sensitive to merem - continue Code(s): N39.0 - URINARY TRACT INFECTION, SITE NOT SPECIFIED (6) Hypokalemia Current Visit: Yes Status: Acute Assessment & Plan: -Potassium at 3.2- replenish per protocol -Tele -Monitor potassium daily Code(s): E87.6 - HYPOKALEMIA (7) Melena Current Visit: Yes Status: Acute Assessment & Plan: -Protonix BID -Monitor stool color and trend hemoglobin -No current signs of hemodynamic instability -occult stools Code(s): K92.1 - MELENA (8) Obesity (BMI 30-39.9) Current Visit: Yes Status: Chronic Assessment & Plan: -Diet and lifestyle counseling provided VTE: SCD's PPI: Protonix Next of KIN: Sibling Latrice [phone] D/C plan: 1-2 days Code status: Full Mgnt and plan of care time > 35 minutes Code(s): E66.9 - OBESITY, UNSPECIFIED
[2024-09-12] MEDS: Klor Con PO SCH (07:32)
--- NOTE | 2024-09-12 11:02 | PCM.DS ---
Discharge Summary Date of Admission: 09/09/24 11:28 Date of Discharge: 09/12/24 Admitting Physician: ROSARIO TAFOYA MD Primary Care Provider: NO FAMILY DOCTOR Allergies Allergies Sulfa (Sulfonamide Antibiotics) Allergy (Intermediate, Verified 09/08/24 20:47) [facility] Summary - Hospital Course Hospital Course: Ms. Cisneros is a 69-year-old female with a history of hypertension, hypothyroidism, and anxiety who was admitted on 09/09/24 with acute kidney injury and persistent diarrhea. She presented with a week of loose stools, low-grade fevers, and urinary symptoms. Initial labs showed a creatinine of 4.2 (baseline ~1.0), hypokalemia with potassium 2.9, and urinalysis consistent with infection; urine culture grew E. coli. Imaging revealed early signs of colitis in the right lower quadrant, prompting escalation of antibiotics from ceftriaxone to meropenem. Despite denying abdominal pain, she continued to experience frequent dark stools. C. difficile testing was negative, and her symptoms gradually improved with supportive care including IV fluids, electrolyte repletion, probiotics, Protonix, and Questran Lite. Her creatinine normalized to 0.84 with hydration, and potassium was repleted. Physical therapy was consulted for reported weakness, and bladder spasms improved with hyoscyamine. On 09/11 she had one episode of overnight diarrhea, but otherwise reports feeling much better. She remains afebrile, hemodynamically stable, and is tolerating oral intake. Potassium will be repleted once more prior to discharge. She is safe for discharge home with plans to complete a course of oral ciprofloxacin for UTI and follow up with her PCP. Discharge Note New Diagnosis: UTI/ANGELIKA New Medications: Cipro/questran Follow Up: PCP I spent 35 minutes [id number] with the patient on the day of discharge performing discharge exam, discussing hospital stay and discharge instructions with patient and caregivers, preparation of discharge records, prescriptions & referral forms and addressing any questions/concerns the patient had as documented above. - Vitals & Intake/Output Vital Signs: Vital Signs Temperature 98 F 09/12/24 07:52 Pulse Rate 78 09/12/24 07:52 Respiratory Rate 17 09/12/24 07:52 Blood Pressure 150/68 09/12/24 07:52 O2 Sat by Pulse Oximetry 93 L 09/12/24 07:52 Intake & Output: Intake & Output 09/09/24 09/10/24 09/11/24 09/12/24 11:59 11:59 11:59 11:59 Intake Total 2426 4120 5404 2975 Output Total 400 1 Balance 2025 4120 5400 2978 Weight 96.8 kg - Lab Result Diagrams: 09/12/24 04:30 09/12/24 04:30 Lab Results-Last 24 Hrs: Lab Results-Last 24 Hours 09/12/24 09/12/24 09/12/24 Range/Units 04:30 04:30 04:30 WBC 9.7 (3.98-10.04) x10^3/uL RBC 3.99 (3.93-5.22) x10^6/uL Hgb 11.0 L (11.2-15.7) g/dL Hct 35.1 (34.1-44.9) % MCV 88.0 (79.4-94.8) fL MCH 27.6 (25.6-32.2) pg MCHC 31.3 L (32.2-35.5) g/dL RDW 13.7 (11.7-14.4) % Plt Count 309 (182-369) x10^3/uL MPV 8.7 L (9.4-12.3) fL Sodium 140 (135-145) mmol/L Potassium 3.2 L (3.5-5.1) mmol/L Chloride 108 H (98-107) mmol/L Carbon Dioxide 26 (22-30) mmol/L Anion Gap 9.0 (5-15) MEQ/L BUN 8 (7-17) mg/dL Creatinine 0.84 (0.52-1.04) mg/dL Estimated GFR 75.7 ML/MIN Glucose 102 (74-106) mg/dL Calcium 8.8 (8.4-10.2) mg/dL Magnesium 1.5 L (1.6-2.3) mg/dL Total Bilirubin 0.20 (0.2-1.3) mg/dL AST 35 (14-36) U/L ALT 32 (0-35) U/L Alkaline Phosphatase 122 (38-126) U/L Serum Total Protein 7.6 (6.3-8.2) g/dL Albumin 3.7 (3.5-5.0) g/dL Micro Results-Entire Visit: Microbiology 09/08/24 18:58 Urine Culture - Preliminary Clean Catch Midstream Escherichia Coli - Radiology Exams Ordered Rad Exams-Entire Visit: Radiology Procedures Category Date Time Status CHEST 1 VIEW (PORTABLE) Urgent Exams 09/11/24 15:31 Completed - Procedures and Test Procedures and Tests throughout Hospitalization: Therapy Orders & Screens 09/08/24 20:23 EKG PRN Comment: 09/11/24 11:04 PT Eval & Treat ( Order) ONCE Reason for Eval:: weakness Diagnosis: Hypokalemia, acute kidney injury, dehydration 09/11/24 15:39 Respiratory Therapy Assessment DAILY Comment: Diagnosis: Hypokalemia, acute kidney injury, dehydration Discharge Exam General Appearance: no apparent distress Neurologic Exam: alert, oriented x 3, cooperative Eye Exam: PERRL Ears, Nose, Throat Exam: normal ENT inspection Neck Exam: normal inspection Respiratory Exam: normal breath sounds, lungs clear Cardiovascular Exam: regular rate/rhythm, normal heart sounds Gastrointestinal/Abdomen Exam: soft, normal bowel sounds Pelvic Exam: deferred Rectal Exam: deferred Back Exam: normal inspection Extremity Exam: normal inspection Skin Exam: normal color Final Diagnosis/Problem List - Final Discharge Diagnosis/Problem (1) Colitis Current Visit: Yes Status: Acute Assessment & Plan: Continue Cholestyramine (Questran Lite) 4g PO daily, may increase to BID as needed Probiotic daily Protonix 40 mg PO BID Monitor for recurrence of diarrhea; follow up with PCP for reassessment Educate on hydration and bland diet Code(s): K52.9 - NONINFECTIVE GASTROENTERITIS AND COLITIS, UNSPECIFIED (2) Acute kidney injury Current Visit: Yes Status: Acute Assessment & Plan: Renal function improved with IVF; no ongoing need for IV fluids Avoid nephrotoxins (NSAIDs, contrast, certain antibiotics) Monitor CMP with creatinine and electrolytes in follow-up Ensure adequate oral hydration Code(s): N17.9 - ACUTE KIDNEY FAILURE, UNSPECIFIED (3) Bladder spasms Current Visit: Yes Status: Acute Assessment & Plan: resolved (4) Dehydration Current Visit: Yes Status: Acute Assessment & Plan: resolved Code(s): E86.0 - DEHYDRATION (5) UTI (urinary tract infection) Current Visit: Yes Status: Acute Assessment & Plan: Continue Ciprofloxacin 500 mg PO BID to complete full 7-day course Monitor for recurrence of urinary symptoms Follow up with PCP for urine culture results if needed Code(s): N39.0 - URINARY TRACT INFECTION, SITE NOT SPECIFIED (6) Hypokalemia Current Visit: Yes Status: Acute Assessment & Plan: Potassium chloride PO repletion prior to discharge Monitor potassium level in outpatient labs Reinforce dietary potassium intake (bananas, oranges, potatoes, spinach) Code(s): E87.6 - HYPOKALEMIA (7) Melena Current Visit: Yes Status: Acute Assessment & Plan: resolved Code(s): K92.1 - MELENA (8) Obesity (BMI 30-39.9) Current Visit: Yes Status: Chronic Assessment & Plan: Dietary and lifestyle counseling provided during hospitalization Encourage weight management through PCP or bed worker referral Code(s): E66.9 - OBESITY, UNSPECIFIED - Discharge Discharge Date: 09/12/24 Disposition: Home, Self-Care Condition: Stable Prescriptions: New Lactobacillus Acidophilus [Acidophilus TABLET] 1 tab PO DAILY 30 Days #30 tablet Ciprofloxacin HCl [Cipro] 500 mg PO BID 14 Days #7 tablet PANTOPRAZOLE 40 mg Tablet [Protonix 40MG Tablet] 40 mg PO QAM 30 Days #30 tab Cholestyramine Light 4 gm [QUESTRAN Light 4 GM Packet] 4 gm PO DAILY PRN 7 Days #7 pkt PRN Reason: Diarrhea Continue hydroCHLOROthiazide [Hydrochlorothiazide] 12.5 mg PO DAILY Cranberry Conc/Ascorbic Acid [Cranberry + Vit C Softgel] 2 - 4 each PO DAILY Cholecalciferol (Vitamin D3) [Vitamin D] 400 unit PO DAILY Calcium Carbonate/Vitamin D3 [Calcium 500-Vit D3 400 Tablet] 1 each PO DAILY Trandolapril [Mavik] 4 mg PO DAILY clonazePAM [Clonazepam] 0.5 mg PO DAILY Venlafaxine HCl [Venlafaxine HCl ER] 150 mg PO DAILY Timolol Maleate/Pf [Timolol Maleate 0.5% Eye Drop] 1 drop DROPS DAILY Amlodipine Besylate 5 mg PO DAILY ARIPiprazole [Aripiprazole] 5 mg PO DAILY Levothyroxine Sodium 50 Mcg [Synthroid 50 Mcg] 50 mcg PO QAM Rosuvastatin Calcium [Crestor] 5 mg PO DAILY hydrOXYzine HCL [Hydroxyzine HCl] 10 mg PO QHS Trazodone HCl 200 mg PO QHS Cyclobenzaprine HCl 5 mg PO QHS Gabapentin 600 mg PO QHS Instructions: Urinary tract infection - Discharge instructions Follow up with: ROBERT BELLE DO [ACTIVE STAFF, FAMILY [facility]ACTICE] - 10/07/24 11:00 am Referral Note: Please repeat U/A at visit
[2024-09-12] MEDS: MAGNESIUM SULF 2 G/50 ML BAG 2 GM/50 ML PIGGYBACK IV ONE (13:16)
[2024-09-12] MEDS: Klor Con PO ONE (15:38)
[2024-09-12 16:25] VITALS: BP 144/65; PULSE 76; RESP 17; TEMP 97.8; O2SAT 95
== END 2024-09-12 18:00 | disposition home or self-care (01) | DRG 392 ==
LOC: ED 16:54 → MED SURG 20:39 → OBSVTOIN 09-09 11:28
PROVIDERS: ADMIT Internal Medicine; ATTEND Internal Medicine
DX: K52.9 Noninfective gastroenteritis and colitis, unspecified (principal); N17.9 Acute kidney failure, unspecified; N39.0 Urinary tract infection, site not specified; K92.1 Melena; N32.89 Other specified disorders of bladder; E86.0 Dehydration; B96.20 Unspecified Escherichia coli [E. coli] as the cause of diseases classified elsewhere; E87.6 Hypokalemia; I10 Essential (primary) hypertension; E66.9 Obesity, unspecified; E03.9 Hypothyroidism, unspecified; F41.9 Anxiety disorder, unspecified; Z79.899 Other long term (current) drug therapy
CPT/HCPCS: 36415; 71045; 74176; 80048; 80053; 81001; 83735; 84132; 85025; 85027; 87077; 87086; 87186; 87493; 93005; 94640; 94760; 96360; 96365; 96366; 97161; 99285; Q3014